=== PATIENT | female | born 1940 | race Caucasian/White ===

== ENCOUNTER 2017-07-02 09:40 | Inpatient (IN) | payer MEDICARE, OTHER ==
[2017-07-02] VITALS (7 sets, daily range): BP systolic 106–195; BP diastolic 61–86; PULSE 61–77; RESP 16–20; TEMP 98.2–98.7; O2SAT 93–98
[~2017-07-02] VITALS: Ht 162.6 cm; Wt 69.6 kg
[~2017-07-02 09:40] MED LIST: ACIP20TA19 PO; ACTO35TA PO; AMLO5TAB96 PO; ATOR20TA42 PO; CHLORTABS PO; DIOV40TA PO; GLUC500C56 PO; MONT10TA2 PO; MOTR200T PO; PROT40TA PO; PROZ20CA11 PO; TAB-TAB PO; VITA400C28 PO; otc PO
--- NOTE | 2017-07-02 10:21 | PD ---
HPI Chief Complaint: Dizziness Time Seen by Provider: 09:57 Travel History International Travel<30 days: No Contact w/Intl Traveler<30days: No Traveled to known affect area: No History of Present Illness HPI Patient presents to the emergency department after being at Dr. Rucker's office and referred to come to the ER for admission and further testing. Patient complains of a month long headache diffuse rates it at about 3-4 out of 10 and is occasionally associated with seeing black area, mostly on the periphery but it is not persistent or constant and resolves. Patient presently does not have any visual deficits. Patient denies any alleviating or aggravating factors. Patient denies any associated factors such as fever, cough , nausea, vomiting, diarrhea, back pain, abdominal pain, chest pain, rash at this time. Primary care is Dr. Anna MOONEY Neurologist is Dr. Rucker Allergies: Extensive list including aspirin codeine hydrocodone Reglan tramadol PFSH Past Medical History Asthma: Yes Cancer: Yes (skin cancers, lung ca left lung) Cardiovascular Problems: Yes COPD: Yes Diabetes: No GERD: Yes Glaucoma: No Hepatitis: No Hiatal Hernia: No Hypertension: Yes Medical other: Yes (reflux stress incontinence arthritis) Thyroid Disease: Yes Influenza Vaccination: Yes Dilation and Curettage (D&C): Yes Past Surgical History Abdominal Surgery: Yes (appendectomy gallbladder removed) Appendectomy: Yes Cholecystectomy: Yes Eye Surgery: Yes (cataract removal both eyes) Genitourinary Surgery: Yes (bladder sling) Gynecologic Surgery: Yes (d and c) Oral Surgery: Yes (tonsillectomy) Pacemaker: No Tonsillectomy: Yes Other Surgery: Yes (lower back surgery) Social History Alcohol Use: Yes (occasionally) Tobacco Use: No (QUIT LONG AGO) Substance Use: No Allergies-Medications (Allergen,Severity, Reaction): Coded Allergies: bupropion (Unverified Allergy, Severe, FLU-LIKE SXS, 01/12/17) nefazodone (Unverified Allergy, Severe, FLU-LIKE SXS, 01/12/17) hydrocodone (Verified Allergy, Unknown, 07/02/17) metoclopramide (Verified Allergy, Unknown, 07/02/17) nebivolol (Verified Allergy, Unknown, 07/02/17) tramadol (Verified Allergy, Unknown, 07/02/17) aspirin (Verified Adverse Reaction, Unknown, 07/02/17) codeine (Verified Adverse Reaction, Unknown, 07/02/17) dipyridamole (Verified Adverse Reaction, Unknown, 07/02/17) Reported Meds & Prescriptions Reported Meds & Active Scripts Active Reported Celecoxib 200 Mg Cap 200 Mg PO BID Breo Ellipta Inh (Fluticasone/Vilanterol) 100-25 Mcg/Act Inh 1 Puff INH EVERY OTHER DAY Use daily at the same time. Vitamin D3 (Cholecalciferol (Vitamin D3)) 2,000 Unit Tab.chew 2,000 Units PO DAILY Dyrenium (Triamterene) 50 Mg Cap 50 Mg PO DAILY Lipitor (Atorvastatin Calcium) 20 Mg Tab 20 Mg PO DAILY Singulair (Montelukast Sodium) 10 Mg Tab 10 Mg PO DAILY Protonix (Pantoprazole Sodium) 40 Mg Tab 40 Mg PO DAILY Glucosamine & Chondroitin Cap (Glucosa Saleh 2Kcl/Chondroitin Saleh) 500 Mg-400 Mg Capsule 1 Cap PO BID [Leg Cramps] 1 Tab PO DAILY Prozac (Fluoxetine HCl) 20 Mg Cap 20 Mg PO DAILY Preservision Areds (Multiple Vitamins W/ Minerals) 1 Tab 2 Tab PO DAILY Vitamin B-12 (Cyanocobalamin) 1,000 Mcg Tab 1,000 Mcg PO DAILY Multiple Vitamin/Minerals (Multiple Vitamins W/ Minerals) 1 Tab Tab 1 Tab PO DAILY Diovan (Valsartan) 160 Mg Tab 160 Mg PO BID Fioricet (Jivyomnjlf-Fotksdyjkyfxh-Zkqcjfme) 50-300-40 Mg Cap 1 Cap PO Q12HR PRN Review of Systems General / Constitutional: No: Fever Eyes: No: Visual changes HENT: Positive: Headaches Cardiovascular: No: Chest Pain or Discomfort Respiratory: No: Shortness of Breath Gastrointestinal: No: Abdominal Pain Genitourinary: No: Dysuria Musculoskeletal: No: Pain Skin: No Rash Neurologic: No: Weakness Psychiatric: No: Depression Endocrine: No: Polydipsia Hematologic/Lymphatic: No: Easy Bruising Physical Exam Narrative GENERAL: [Pleasant elderly female in no acute distress-] SKIN: Focused skin assessment warm/dry. HEAD: Atraumatic. Normocephalic. EYES: Pupils equal and round. No scleral icterus. No injection or drainage. ENT: No nasal bleeding or discharge. Mucous membranes pink and moist. NECK: Trachea midline. No JVD. CARDIOVASCULAR: Regular rate and rhythm. No murmur appreciated. RESPIRATORY: No accessory muscle use. Clear to auscultation. Breath sounds equal bilaterally. GASTROINTESTINAL: Abdomen soft, non-tender, nondistended. MUSCULOSKELETAL: No obvious deformities. No clubbing. No cyanosis. No edema. NEUROLOGICAL: Awake and alert. No obvious cranial nerve deficits. Motor grossly within normal limits. Normal speech. PSYCHIATRIC: Appropriate mood and affect; insight and judgment normal. Data Data Last Documented VS Vital Signs Date Time Temp Pulse Resp B/P (MAP) Pulse Ox O2 Delivery O2 Flow Rate FiO2 07/02/17 10:15 97 Room Air 07/02/17 09:43 98.7 64 18 Orders Orders Complete Blood Count With Diff (07/02/17 10:13) Comprehensive Metabolic Panel (07/02/17 10:13) Lipase (07/02/17 10:13) Iv Access Insert/Monitor (07/02/17 10:13) Ecg Monitoring (07/02/17 10:13) Oximetry (07/02/17 10:13) Consult Neurology (07/02/17 ) (Hub Use Only)Inp Phy Cons/Ref (07/02/17 ) Electrocardiogram (07/02/17 10:19) Admit Order (Ed Use Only) (07/02/17 12:56) Labs Laboratory Tests Test 07/02/17 10:15 White Blood Count 6.9 TH/MM3 Red Blood Count 4.15 MIL/MM3 Hemoglobin 12.5 GM/DL Hematocrit 37.4 % Mean Corpuscular Volume 90.2 FL Mean Corpuscular Hemoglobin 30.2 PG Mean Corpuscular Hemoglobin Concent 33.5 % Red Cell Distribution Width 13.0 % Platelet Count 341 TH/MM3 Mean Platelet Volume 6.6 FL Neutrophils (%) (Auto) 40.8 % Lymphocytes (%) (Auto) 32.7 % Monocytes (%) (Auto) 9.1 % Eosinophils (%) (Auto) 16.0 % Basophils (%) (Auto) 1.4 % Neutrophils # (Auto) 2.8 TH/MM3 Lymphocytes # (Auto) 2.3 TH/MM3 Monocytes # (Auto) 0.6 TH/MM3 Eosinophils # (Auto) 1.1 TH/MM3 Basophils # (Auto) 0.1 TH/MM3 CBC Comment DIFF FINAL Differential Comment Blood Urea Nitrogen 15 MG/DL Creatinine 0.77 MG/DL Random Glucose 89 MG/DL Total Protein 6.0 GM/DL Albumin 3.0 GM/DL Calcium Level 9.7 MG/DL Alkaline Phosphatase 113 U/L Aspartate Amino Transf (AST/SGOT) 25 U/L Alanine Aminotransferase (ALT/SGPT) 17 U/L Total Bilirubin 0.3 MG/DL Sodium Level 139 MEQ/L Potassium Level 4.0 MEQ/L Chloride Level 103 MEQ/L Carbon Dioxide Level 29.9 MEQ/L Anion Gap 6 MEQ/L Estimat Glomerular Filtration Rate 72 ML/MIN Lipase 249 U/L MDM Medical Decision Making Medical Screen Exam Complete: Yes Emergency Medical Condition: Yes Medical Record Reviewed: Yes Interpretation(s) EKG shows: Normal sinus rhythm, rate at 66, normal intervals, no STEMI pattern. Differential Diagnosis Not applicable since patient was sent in with imaging showing the causation of her headaches ELECTROLYTE ABNL V ANEMIA V DEHYDRATION Narrative Course NO EVIDENCE OF LEUKOCYTOSIS OR ANEMIA ON CBC....NORMAL ELECTROLYTES AND KIDNEY FUNCTION ON CMP. COAGULATION WNL. NO ADDITIONAL RADIOGRAPHS IN ED, DEFERRED PER NEUROSURGERY. PATIENT WILL BE ADMITTED FOR OBSERVATION Diagnosis Primary Impression: SELLAR MASS Admitting Information Admitting Physician Requests: Observation Owen Jolley MD Jul 02, 2017 10:21
[2017-07-02 10:38] LABS: AUTOMATED NEUTROPHIL # 2.8 TH/MM3 (1.8-7.7); BASOPHIL # 0.1 TH/MM3 (0-0.2); BASOPHIL % 1.4 % (0.0-2.0); EOSINOPHIL # 1.1 TH/MM3 (0-0.4); HEMATOCRIT 37.4 % (35.0-46.0); HEMOGLOBIN 12.5 GM/DL (11.6-15.3); LYMPH % 32.7 % (9.0-44.0); LYMPHOCYTE # 2.3 TH/MM3 (1.0-4.8); MEAN CELL VOLUME 90.2 FL (80.0-100.0); MEAN CORPUSCULAR HEMOGLOBIN 30.2 PG (27.0-34.0); MEAN CORPUSCULAR HGB CONC 33.5 % (32.0-36.0); MEAN PLATELET VOLUME 6.6 FL (7.0-11.0); MONO % 9.1 % (0.0-8.0); MONOCYTE # 0.6 TH/MM3 (0-0.9); NEUT % 40.8 % (16.0-70.0); PLATELET COUNT 341 TH/MM3 (150-450); RED BLOOD COUNT 4.15 MIL/MM3 (4.00-5.30); WHITE BLOOD COUNT 6.9 TH/MM3 (4.0-11.0)
[2017-07-02 11:15] LABS: AST (GOT) 25 U/L (15-37); BICARBONATE 29.9 MEQ/L (21.0-32.0); BLOOD UREA NITROGEN 15 MG/DL (7-18); CALCIUM 9.7 MG/DL (8.5-10.1); CHLORIDE 103 MEQ/L (98-107); CREATININE 0.77 MG/DL (0.50-1.00); GLOMERULAR FILTRATION RATE 72 ML/MIN (>89); GLUCOSE,RANDOM 89 MG/DL (74-106); SODIUM (NA) 139 MEQ/L (136-145)
[2017-07-02 11:21] LABS: ALKALINE PHOSPHATASE 113 U/L (45-117); ALT (GPT) 17 U/L (10-53); TOTAL BILIRUBIN ADULT 0.3 MG/DL (0.2-1.0)
[2017-07-02] MEDS ORDERED: VITA10002 PO (11:50)
[2017-07-02] MEDS ORDERED: PROZ20CA11 PO (11:50)
[2017-07-02] MEDS ORDERED: MONT10TA2 PO (11:50)
[2017-07-02] MEDS ORDERED: LEG CRAMPS PO (11:50)
[2017-07-02] MEDS ORDERED: DIOV160T6 PO (11:50)
[2017-07-02] MEDS ORDERED: MULT1TAB39 PO (11:50)
[2017-07-02] MEDS ORDERED: TRIA1CAP6 PO (11:50)
[2017-07-02] MEDS ORDERED: FLUT1INH INH (11:50)
[2017-07-02] MEDS ORDERED: PROT40TA PO (11:50)
[2017-07-02] MEDS ORDERED: LIPI20TA PO (11:50)
[2017-07-02] MEDS ORDERED: GLUC500C36 PO (11:50)
[2017-07-02] MEDS ORDERED: BUTA1CAP PO (11:50)
[2017-07-02] MEDS ORDERED: CHOL1CHW5 PO (11:50)
[2017-07-02] MEDS ORDERED: OCUVTAB4 PO (11:50)
[2017-07-02] MEDS ORDERED: CELE1CAP8 PO (11:57)
[2017-07-02] MEDS ORDERED: ONDANSETRON HCL 4 MG/2 ML VIAL IVP PRN (13:00)
[2017-07-02] MEDS ORDERED: SODIUM CHLORIDE 0.9% FLUSH 10 ML FLUSH IV FLUSH PRN (13:00)
[2017-07-02] MEDS ORDERED: NALOXONE HCL 0.4 MG/ML AMP IV PUSH PRN (13:00)
[2017-07-02] MEDS ORDERED: ACETAMINOPHEN 325 MG TAB PO PRN ×2 (13:00)
[2017-07-02] MEDS ORDERED: GADODIAMIDE PF 287 MG/ML 20 ML VIAL (for RAD MRI) IVCONTRAST ONE (13:01)
[2017-07-02] MEDS ORDERED: GADODIAMIDE PF 287 MG/ML 5 ML VIAL (for RAD MRI) IVCONTRAST ONE (13:01)
--- NOTE | 2017-07-02 14:01 | PD.CONS ---
HPI Service neurosurgery Consult Requested By Dr Armendariz Reason for Consult pituitary adenoma Primary Care Physician Anna Galo, History of Present Illness This is a 77 year-old female with a history of arterial hypertension, hyperlipidemia was sent to the ED by her neurologist Dr. Weinstein for evaluation of one month history of headaches. She reports that her headaches started in December, following lumbar surgery at the [facility]. She continues to suffer from severe, intractable low back pain. She reports only 2 o 3 days of relief following her surgery. In addition, she has a recent finding of sellar Mass on her brain MRI. She reports throbbing type of headaches rated 9/10 in intensity without any photophobia, visual field defect, congestions, rarely associated with nausea without any emesis. She also reports vision no any black spots from a right eye and she also complained of unsteady gait over the past month for which now she is using a walker to ambulate. She also reports memory loss. Denies visual loss. She has a history of prior removal of cataract. She endorses decreased appetite and she has no GI bleed. She denies any any focal weakness, sensory loss, incontinence of stool or urine. She was evaluated by a neurologist. Neurosurgical consultation was requested Review of Systems Constitutional: DENIES: Diaphoretic episodes, Fatigue, Fever, Weight gain, Weight loss, Chills, Dizziness, Change in appetite, Night Sweats Endocrine: DENIES: Abnorml menstrual pattern, Heat/cold intolerance, Polydipsia , Polyuria, Polyphagia Eyes: DENIES: Blurred vision, Diplopia, Eye inflammation, Eye pain, Vision loss , Photosensitivity, Double Vision Ears, nose, mouth, throat: DENIES: Tinnitus, Hearing loss, Vertigo, Nasal discharge, Oral lesions, Throat pain, Hoarseness, Ear Pain, Running Nose, Epistaxis, Sinus Pain, Toothache, Odynophagia Respiratory: DENIES: Apneas, Cough, Snoring, Wheezing, Hemoptysis, Sputum production, Shortness of breath Cardiovascular: DENIES: Chest pain, Palpitations, Syncope, Dyspnea on Exertion , PND, Lower Extremity Edema, Orthopnea, Claudication Genitourinary: DENIES: Abnormal vaginal bleeding, Dysmenorrhea, Dyspareunia, Sexual dysfunction, Urinary frequency, Urinary incontinence, Urgency, Hematuria , Dysuria, Nocturia, Vaginal discharge Musculoskeletal: COMPLAINS OF: Back pain, DENIES: Joint pain, Muscle aches, Stiffness, Joint Swelling, Neck pain Integumentary: DENIES: Abnormal pigmentation, Pruritus, Rash, Nail changes, Breast masses, Breast skin changes, Nipple discharge Hematologic/lymphatic: DENIES: Bruising, Lymphadenopathy Immunologic/allergic: DENIES: Eczema, Urticaria Neurologic: COMPLAINS OF: Headache, DENIES: Abnormal gait, Localized weakness, Paresthesias, Seizures, Speech Problems, Tremor, Poor Balance Psychiatric: COMPLAINS OF: Confusion, DENIES: Anxiety, Mood changes, Depression , Hallucinations, Agitation, Suicidal Ideation, Homicidal Ideation, Delusions Past Family Social History Allergies: Coded Allergies: bupropion (Unverified Allergy, Severe, FLU-LIKE SXS, 01/12/17) nefazodone (Unverified Allergy, Severe, FLU-LIKE SXS, 01/12/17) hydrocodone (Verified Allergy, Unknown, 07/02/17) metoclopramide (Verified Allergy, Unknown, 07/02/17) nebivolol (Verified Allergy, Unknown, 07/02/17) tramadol (Verified Allergy, Unknown, 07/02/17) aspirin (Verified Adverse Reaction, Unknown, 07/02/17) codeine (Verified Adverse Reaction, Unknown, 07/02/17) dipyridamole (Verified Adverse Reaction, Unknown, 07/02/17) Past Medical History Asthma: Yes Cancer: Yes (skin cancers, lung ca left lung) Cardiovascular Problems: Yes COPD: Yes GERD: Yes Hypertension: Yes Medical other: Yes (reflux stress incontinence arthritis) Thyroid Disease: Yes Past Surgical History Abdominal Surgery: Yes (appendectomy gallbladder removed) Appendectomy: Yes Cholecystectomy: Yes Eye Surgery: Yes (cataract removal both eyes) Genitourinary Surgery: Yes (bladder sling) Oral Surgery: Yes (tonsillectomy) Tonsillectomy: Yes LUMBAR LAMINECTOMY AT THE laser INSTIRUTE Reported Medications Multivitamin (Multivitamins) 1 Tab Tab 1 Tab PO DAILY Ibuprofen 200 Mg Tab 200 Mg PO PRN [otc chlortabs] PO PRN Vitamin D 400 Unit Tab 0 PO WEEKLY pt takes 50,000 units weekly Glucosamine Sulfate/Chondroitin Sulfate (Glucosamine/Chondroitin) Tab 1 Tab PO BID Actonel (Risedronate) 35 Mg Tab 35 Mg PO WEEKLY Aciphex (Rabeprazole Sodium) 20 Mg Tabdr 20 Mg PO HS Singulair (Montelukast Sodium) 10 Mg Tab 10 Mg PO HS Lipitor (Atorvastatin Calcium) 20 Mg Tab 10 Mg PO DAILY Diovan (Valsartan) 40 Mg Tab 160 Mg PO DAILY Norvasc (Amlodipine Besylate) 5 Mg Tab 5 Mg PO DAILY Protonix (Pantoprazole Sodium) 40 Mg Tabdr 40 Mg PO DAILY Prozac (Fluoxetine HCl) 20 Mg Cap 20 Mg PO TID Allergies: Coded Allergies: bupropion (Unverified Allergy, Severe, FLU-LIKE SXS, 01/12/17) nefazodone (Unverified Allergy, Severe, FLU-LIKE SXS, 01/12/17) hydrocodone (Verified Allergy, Unknown, 07/02/17) metoclopramide (Verified Allergy, Unknown, 07/02/17) nebivolol (Verified Allergy, Unknown, 07/02/17) tramadol (Verified Allergy, Unknown, 07/02/17) aspirin (Verified Adverse Reaction, Unknown, 07/02/17) codeine (Verified Adverse Reaction, Unknown, 07/02/17) dipyridamole (Verified Adverse Reaction, Unknown, 07/02/17) Active Ordered Medications Current Medications Sodium Chloride (NS Flush) 2 ml UNSCH PRN IV FLUSH FLUSH AFTER USING IV ACCESS ; Start 07/02/17 at 13:00 Sodium Chloride (NS Flush) 2 ml BID IV FLUSH Last administered on 07/03/17at 10: 04; Start 07/02/17 at 21:00 Acetaminophen (Tylenol) 650 mg Q4H PRN PO TEMP > 100.4; Start 07/02/17 at 13:00 Ondansetron HCl (Zofran Inj) 4 mg Q6H PRN IVP NAUSEA OR VOMITING; Start at 13:00 Acetaminophen (Tylenol) 650 mg Q6H PRN PO PAIN SCALE 1 TO 2; Start 07/02/17 at 13:00 Naloxone HCl (Narcan Inj) 0.4 mg UNSCH PRN IV PUSH SEE LABEL COMMENTS; Start at 13:00 Atorvastatin Calcium (Lipitor) 20 mg DAILY PO Last administered on 07/03/17at 10: 06; Start 07/03/17 at 09:00 Celecoxib (CeleBREX) 200 mg BID PO Last administered on 07/03/17at 10:06; Start 07/02/17 at 21:00 Fluoxetine HCl (PROzac) 20 mg DAILY PO Last administered on 07/03/17at 10:06; Start 07/03/17 at 09:00 Fluticasone/ Vilanterol (Breo Ellipta 100-25 Inh) 1 puff EVERY OTHER DAY INH ; Start 07/04/17 at 09:00 Montelukast Sodium (Singulair) 10 mg DAILY PO ; Start 07/03/17 at 09:00 Pantoprazole Sodium (Protonix) 40 mg DAILY PO Last administered on 07/03/17at 10: 06; Start 07/03/17 at 09:00 Valsartan (Diovan) 160 mg BID PO Last administered on 07/03/17at 10:06; Start 07/02/17 at 21:00 Acetaminophen/ Butalbital/ Caffeine (Fioricet 325-50-40) 1 tab Q12HR PRN PO HEADACHE Last administered on 07/03/17at 05:27; Start 07/02/17 at 16:00; Stop at 10:44; Status DC Patient Own Medication PT OWN MED: DYRENIUM (TRIAMTERE... DAILY PO ; Start at 09:00; Status Future Hold Gadodiamide (Omniscan Pf Inj) 13 ml STK-MED ONCE IVCONTRAST Last administered on 07/02/17at 13:01; Start 07/02/17 at 13:01; Stop 07/02/17 at 20:11; Status DC Ketorolac Tromethamine (Toradol Inj) 30 mg ONCE ONCE IV PUSH Last administered on 07/02/17at 22:54; Start 07/02/17 at 22:15; Stop 07/02/17 at 22:16; Status DC Temazepam (Restoril) 7.5 mg ONCE ONCE PO ; Start 07/02/17 at 23:00; Stop at 23:04; Status DC Clonidine (Catapres) 0.1 mg ONCE ONCE PO Last administered on 07/03/17at 04:05; Start 07/03/17 at 04:00; Stop 07/03/17 at 04:02; Status DC Gadodiamide (Omniscan Pf Inj) 13 ml STK-MED ONCE IVCONTRAST Last administered on 07/02/17at 13:01; Start 07/02/17 at 13:01; Stop 07/03/17 at 08:47; Status DC Ketorolac Tromethamine (Toradol Inj) 30 mg ONCE ONCE IM Last administered on at 10:06; Start 07/03/17 at 09:00; Stop 07/03/17 at 09:01; Status DC Acetaminophen/ Butalbital/ Caffeine (Fioricet 325-50-40) 1 tab Q6HR PRN PO HEADACHE; Start 07/03/17 at 11:00 Current Medications Sodium Chloride (NS Flush) 2 ml UNSCH PRN IV FLUSH FLUSH AFTER USING IV ACCESS ; Start 07/02/17 at 13:00 Sodium Chloride (NS Flush) 2 ml BID IV FLUSH ; Start 07/02/17 at 21:00 Acetaminophen (Tylenol) 650 mg Q4H PRN PO TEMP > 100.4; Start 07/02/17 at 13:00 Ondansetron HCl (Zofran Inj) 4 mg Q6H PRN IVP NAUSEA OR VOMITING; Start at 13:00 Acetaminophen (Tylenol) 650 mg Q6H PRN PO PAIN SCALE 1 TO 2; Start 07/02/17 at 13:00 Naloxone HCl (Narcan Inj) 0.4 mg UNSCH PRN IV PUSH SEE LABEL COMMENTS; Start at 13:00 Family History Family History Due to patient's advanced age, otherwise her family history was reviewed and was not relevant for this case Social History Alcohol Use: Yes (occasionally) Tobacco Use: No (QUIT LONG AGO) Substance Use: No Physical Exam Vital Signs Vital Signs Date Time Temp Pulse Resp B/P (MAP) Pulse Ox O2 Delivery O2 Flow Rate FiO2 07/02/17 10:15 97 Room Air 07/02/17 09:43 98.7 64 18 184/79 (114) 95 Room Air Physical Exam MS Gomez is alert, awake and oriented to time, place and person. Speech is fluent. Cranial nerve examination demonstrates the pupils to be equal, round, and reactive to light. Extra-ocular movements are intact. Facial motor and sensory function are normal and symmetrical. Gross hearing is intact, bilaterally. The uvula is midline and elevates symmetrically with the soft palate. Sternocleidomastoid and trapezius muscles have normal and symmetrical strength. Other cranial nerves are intact. Neck is soft and supple. Cervical spine has a full range of motion in anterior flexion, extension, lateral bending, and rotation without pain. There is no tenderness to palpation to the spinous processes or paraspinal muscles. Muscle testing reveals normal bulk and tone overall without rigidity, spasticity , fasciculations, or atrophy. Muscle strength is 5/5 in all muscle groups of both upper extremities including deltoid, biceps, triceps, brachioradialis, wrist extension and perinatology physician. In the lower extremities, strength is 5/5 in both iliopsoas, quadriceps, hamstrings, plantar flexion, dorsiflexion, and extensor hallicus longus. Sensory examination is intact to light touch and sharp/dull discrimination in both the upper and lower extremities, symmetrically. Deep tendon reflexes are 2+ and symmetrical in the biceps, triceps, and brachioradialis, bilaterally, in the upper extremities. In the lower extremities , the patellar and Achilles are 2+, bilaterally. There is a bilateral plantar flexion response. Hoffmanns sign is negative. There is no clonus or other abnormal reflexes noted. Cerebellar examination is intact to [id number] test, rapid rhythmic alternating motion. There is no dysmetria, dysdiadochokinesia, truncal ataxia, or tremor. Lungs: clear, nonlabored breathing, no wheezing Heart: S1, S2, regular rhythm and rate Skin: warm and dry, no cyanosis. Laboratory Laboratory Tests Test 07/02/17 10:15 White Blood Count 6.9 Red Blood Count 4.15 Hemoglobin 12.5 Hematocrit 37.4 Mean Corpuscular Volume 90.2 Mean Corpuscular Hemoglobin 30.2 Mean Corpuscular Hemoglobin Concent 33.5 Red Cell Distribution Width 13.0 Platelet Count 341 Mean Platelet Volume 6.6 Neutrophils (%) (Auto) 40.8 Lymphocytes (%) (Auto) 32.7 Monocytes (%) (Auto) 9.1 Eosinophils (%) (Auto) 16.0 Basophils (%) (Auto) 1.4 Neutrophils # (Auto) 2.8 Lymphocytes # (Auto) 2.3 Monocytes # (Auto) 0.6 Eosinophils # (Auto) 1.1 Basophils # (Auto) 0.1 CBC Comment DIFF FINAL Differential Comment Blood Urea Nitrogen 15 Creatinine 0.77 Random Glucose 89 Total Protein 6.0 Albumin 3.0 Calcium Level 9.7 Alkaline Phosphatase 113 Aspartate Amino Transf (AST/SGOT) 25 Alanine Aminotransferase (ALT/SGPT) 17 Total Bilirubin 0.3 Sodium Level 139 Potassium Level 4.0 Chloride Level 103 Carbon Dioxide Level 29.9 Anion Gap 6 Estimat Glomerular Filtration Rate 72 Lipase 249 Result Diagram: 07/02/17 1015 07/02/17 1015 Attending Statement Neuro. Recommend neuro checks. I review her outside MRI of the brain which show 1 cm pituitary adenoma. I do not see any evidence of apoplexy. I recommend that she undergoes an MRI of the pituitary region with and without contrast Recommend. CONSULT smoking pipes cleaner. Recommend full putuitary workup Consult ophtalmology for visual field assessment and assessment of her prior surgical condition In regards to her chronic low back pain, she tells me that since she suspects a cerebrospinal fluid leak on her lumbar region. I will defer further care to the surgeon who recently performed her lumbar surgery, at the [facility]. These could be done as an outpatient Pulmonary.. Continue aggressive pulmonary toilette, nasotracheal suction, and breathing treatments with nebulizers. Nutrition. NPO Renal. monitor closely urine output, BUN and creatinine Endocrine. Monitor serial Acu checks and SSI as needed in detail ID monitor for signs of infection Protonix for stress ulcer prophylaxis Pranay flores and SCD's for DVT prophylaxis. Santhosh Gaviria MD Jul 02, 2017 14:01
--- NOTE | 2017-07-02 14:04 | PD.CONS ---
History of Present Illness Service Neurology Consult Requested By ED Reason for Consult headache Primary Care Physician Anna Galo DO History of Present Illness 77 yo female known to our practice, seen in office yesterday and having persistent headache and scotoma in the right eye particularly. She had MRI brain as an outpatient concerning for a pituitary mass. She states the scotoma is not active today. The patient also notes pain down her spine. She denies any incontinence of urine or stool. (Hardeep Jaeger) Review of Systems Constitutional: Negative except HPI Eye: Negative Except HPI ENMT: Negative except HPI Respiratory: Negative except HPI Cardiovascular: Negative except HPI Gastrointestinal: Negative except HPI Gabino/Lymph: Negative except HPI Musculoskeletal: Negative except HPI Neurologic: Negative except HPI Psychiatric: Negative except HPI All other ROS: ROS reviewed as documented in chart (Hardeep Jaeger) Past Family Social History Allergies: Coded Allergies: bupropion (Unverified Allergy, Severe, FLU-LIKE SXS, 01/12/17) nefazodone (Unverified Allergy, Severe, FLU-LIKE SXS, 01/12/17) hydrocodone (Verified Allergy, Unknown, 07/02/17) metoclopramide (Verified Allergy, Unknown, 07/02/17) nebivolol (Verified Allergy, Unknown, 07/02/17) tramadol (Verified Allergy, Unknown, 07/02/17) aspirin (Verified Adverse Reaction, Unknown, 07/02/17) codeine (Verified Adverse Reaction, Unknown, 07/02/17) dipyridamole (Verified Adverse Reaction, Unknown, 07/02/17) Active Ordered Medications Current Medications Medications (Trade) Dose Ordered Sig/Ruben Route Start Time Stop Time Status Last Admin (NS Flush) 2 ml UNSCH PRN IV FLUSH 07/02/17 13:00 (NS Flush) 2 ml BID IV FLUSH 07/02/17 21:00 (Tylenol) 650 mg Q4H PRN PO 07/02/17 13:00 (Zofran Inj) 4 mg Q6H PRN IVP 07/02/17 13:00 (Tylenol) 650 mg Q6H PRN PO 07/02/17 13:00 (Narcan Inj) 0.4 mg UNSCH PRN IV PUSH 07/02/17 13:00 (Hardeep Jaeger) Exam I&O / VS Vital Signs Date Time Temp Pulse Resp B/P (MAP) Pulse Ox O2 Delivery O2 Flow Rate FiO2 07/02/17 10:15 97 Room Air 07/02/17 09:43 98.7 64 18 184/79 (114) 95 Room Air General: No acute distress Eye: PERRL, EOMI Respiratory: Non-labored respirations, Symmetrical expansion Cardiology: Normal rate Neurologic: Alert, CN II-XII intact, Normal DTR's Psychiatric: Cooperative Exam Comments ox2, not to year, speech fluent, pleasant affect but c/o persistent headache, walking with a walker-no gross ataxia, subjective slight decrease in B/L peripheral vision, no ptosis or nystagmus, no facial weakness, no focal weakness , no drift, mild hyperesthesia noted in both uppers, sensory intact in lowers, heel-arellano coordination intact, FNF intact, plantar flexor (Hardeep Jaeger) Review/Management Diagnosis/Plan: (1) Headache ICD Codes: R51 - Headache Status: Acute Plan: Fioricet, zofran Supportive care (2) Mass, brain ICD Codes: G93.9 - Disorder of brain, unspecified Plan: NSx consult pending Check PRL MRI pituitary (Hardeep Jaeger) Diagnosis/Plan: (1) Pituitary adenoma ICD Codes: D35.2 - Benign neoplasm of pituitary gland Status: Chronic Plan: d/w PA. agree with above f/u mri's appreciate nsx (2) Cognitive impairment ICD Codes: R41.89 - Other symptoms and signs involving cognitive functions and awareness Status: Chronic (Caden Rucker MD) Hardeep Jaeger Jul 02, 2017 14:04 Caden Rucker MD Jul 02, 2017 21:52
--- NOTE | 2017-07-02 14:15 | HHI.HP ---
HPI Service [facility] Primary Care Physician Anna Galo DO Admission Diagnosis HEADACHE DUE TO SELLAR MASS Diagnoses: (1) Mass, brain (2) Headache Chief Complaint: Headache Travel History International Travel<30 Days: No Contact w/Intl Traveler <30 Da: No Traveled to Known Affected Are: No History of Present Illness 77 year-old female with a history of hypertension, hyperlipidemia was sent to the ED by her neurologist Dr. Weinstein for evaluation of one month history of headache and recent finding of sellar Mass on brain MRI. Patient reports throbbing type of headaches rated 9/10 in intensity without any photophobia, visual field defect, congestions however it is occasionally associated with nausea without any emesis. She also reports vision no any black spots from a right eye and she also complained of unsteady gait over the past month for which now she is using a walker to ambulate. She also endorsed memory loss. Patient has a history of prior removal of cataract. She endorses decreased appetite and she has no GI bleed Review of Systems Except as stated in HPI: all other systems reviewed are Neg Past Family Social History Past Medical History Asthma: Yes Cancer: Yes (skin cancers, lung ca left lung) Cardiovascular Problems: Yes COPD: Yes GERD: Yes Hypertension: Yes Medical other: Yes (reflux stress incontinence arthritis) Thyroid Disease: Yes Past Surgical History Abdominal Surgery: Yes (appendectomy gallbladder removed) Appendectomy: Yes Cholecystectomy: Yes Eye Surgery: Yes (cataract removal both eyes) Genitourinary Surgery: Yes (bladder sling) Oral Surgery: Yes (tonsillectomy) Tonsillectomy: Yes Other Surgery: Yes (lower back surgery) Reported Medications Multivitamin (Multivitamins) 1 Tab Tab 1 Tab PO DAILY Ibuprofen 200 Mg Tab 200 Mg PO PRN [otc chlortabs] PO PRN Vitamin D 400 Unit Tab 0 PO WEEKLY pt takes 50,000 units weekly Glucosamine Sulfate/Chondroitin Sulfate (Glucosamine/Chondroitin) Tab 1 Tab PO BID Actonel (Risedronate) 35 Mg Tab 35 Mg PO WEEKLY Aciphex (Rabeprazole Sodium) 20 Mg Tabdr 20 Mg PO HS Singulair (Montelukast Sodium) 10 Mg Tab 10 Mg PO HS Lipitor (Atorvastatin Calcium) 20 Mg Tab 10 Mg PO DAILY Diovan (Valsartan) 40 Mg Tab 160 Mg PO DAILY Norvasc (Amlodipine Besylate) 5 Mg Tab 5 Mg PO DAILY Protonix (Pantoprazole Sodium) 40 Mg Tabdr 40 Mg PO DAILY Prozac (Fluoxetine HCl) 20 Mg Cap 20 Mg PO TID Allergies: Coded Allergies: bupropion (Unverified Allergy, Severe, FLU-LIKE SXS, 01/12/17) nefazodone (Unverified Allergy, Severe, FLU-LIKE SXS, 01/12/17) hydrocodone (Verified Allergy, Unknown, 07/02/17) metoclopramide (Verified Allergy, Unknown, 07/02/17) nebivolol (Verified Allergy, Unknown, 07/02/17) tramadol (Verified Allergy, Unknown, 07/02/17) aspirin (Verified Adverse Reaction, Unknown, 07/02/17) codeine (Verified Adverse Reaction, Unknown, 07/02/17) dipyridamole (Verified Adverse Reaction, Unknown, 07/02/17) Family History Due to patient's advanced age, family history not relevant for this case Social History Alcohol Use: Yes (occasionally) Tobacco Use: No (QUIT LONG AGO) Substance Use: No Physical Exam Vital Signs Vital Signs Date Time Temp Pulse Resp B/P (MAP) Pulse Ox O2 Delivery O2 Flow Rate FiO2 07/02/17 10:15 97 Room Air 07/02/17 09:43 98.7 64 18 184/79 (114) 95 Room Air Physical Exam GENERAL: This is a well-nourished, well-developed patient, in no apparent distress. SKIN: No rashes, ecchymoses or lesions. Cool and dry. HEAD: Atraumatic. Normocephalic. No temporal or scalp tenderness. EYES: Pupils equal round and reactive. Extraocular motions intact. No scleral icterus. No injection or drainage. ENT: Nose without bleeding, purulent drainage or septal hematoma. Throat without erythema, tonsillar hypertrophy or exudate. Uvula midline. Airway patent. NECK: Trachea midline. No JVD or lymphadenopathy. Supple, nontender, no meningeal signs. CARDIOVASCULAR: Regular rate and rhythm without murmurs, gallops, or rubs. RESPIRATORY: Clear to auscultation. Breath sounds equal bilaterally. No wheezes , rales, or rhonchi. GASTROINTESTINAL: Abdomen soft, non-tender, nondistended. No hepato-splenomegaly , or palpable masses. No guarding. MUSCULOSKELETAL: Extremities without clubbing, cyanosis, or edema. No joint tenderness, effusion, or edema noted. No calf tenderness. Negative Homans sign bilaterally. NEUROLOGICAL: Awake and alert. Cranial nerves II through XII intact. Motor and sensory grossly within normal limits. Five out of 5 muscle strength in all muscle groups. Normal speech. Laboratory Laboratory Tests Test 07/02/17 10:15 White Blood Count 6.9 Red Blood Count 4.15 Hemoglobin 12.5 Hematocrit 37.4 Mean Corpuscular Volume 90.2 Mean Corpuscular Hemoglobin 30.2 Mean Corpuscular Hemoglobin Concent 33.5 Red Cell Distribution Width 13.0 Platelet Count 341 Mean Platelet Volume 6.6 Neutrophils (%) (Auto) 40.8 Lymphocytes (%) (Auto) 32.7 Monocytes (%) (Auto) 9.1 Eosinophils (%) (Auto) 16.0 Basophils (%) (Auto) 1.4 Neutrophils # (Auto) 2.8 Lymphocytes # (Auto) 2.3 Monocytes # (Auto) 0.6 Eosinophils # (Auto) 1.1 Basophils # (Auto) 0.1 CBC Comment DIFF FINAL Differential Comment Blood Urea Nitrogen 15 Creatinine 0.77 Random Glucose 89 Total Protein 6.0 Albumin 3.0 Calcium Level 9.7 Alkaline Phosphatase 113 Aspartate Amino Transf (AST/SGOT) 25 Alanine Aminotransferase (ALT/SGPT) 17 Total Bilirubin 0.3 Sodium Level 139 Potassium Level 4.0 Chloride Level 103 Carbon Dioxide Level 29.9 Anion Gap 6 Estimat Glomerular Filtration Rate 72 Lipase 249 Result Diagram: 07/02/17 1015 07/02/17 1015 Septic Shock Reassessment Septic shock perfusion: reassessment completed Caprini VTE Risk Assessment Caprini VTE Risk Assessment: Mod/High Risk (score >= 2) Caprini Risk Assessment Model Point Value = 1 Point Value = 2 Point Value = 3 Point Value = 5 Age 41-60 Minor surgery BMI > 25 kg/m2 Swollen legs Varicose veins or History of unexplained or recurrent spontaneous Oral contraceptives or hormone replacement Sepsis (< 1 month) Serious lung disease, including pneumonia (< 1 month) Abnormal pulmonary function Acute myocardial infarction Congestive heart failure (< 1 month) History of inflammatory bowel disease Medical patient at bed rest Age 61-74 Arthroscopic surgery Major open surgery (> 45 min) Laparoscopic surgery (> 45 min) Malignancy Confined to bed (> 72 hours) Immobilizing plaster cast Central venous access Age >= 75 History of VTE Family history of VTE Factor V Leiden Prothrombin [id number] Lupus anticoagulant Anticardiolipin antibodies Elevated serum homocysteine Heparin-induced thrombocytopenia Other congenital or acquired thrombophilia Stroke (< 1 month) Elective arthroplasty Hip, pelvis, or leg fracture Acute spinal cord injury (< 1 month) Prophylaxis Regimen Total Risk Factor Score Risk Level Prophylaxis Regimen 0-1 Low Early ambulation 2 Moderate Order ONE of the following: *Sequential Compression Device (SCD) *Heparin 5000 units SQ BID 3-4 Higher Order ONE of the following medications: *Heparin 5000 units SQ TID *Enoxaparin/Lovenox 40 mg SQ daily (WT < 150 kg, CrCl > 30 mL/min) *Enoxaparin/Lovenox 30 mg SQ daily (WT < 150 kg, CrCl > 10-29 mL/min) *Enoxaparin/Lovenox 30 mg SQ BID (WT < 150 kg, CrCl > 30 mL/min) AND/OR *Sequential Compression Device (SCD) 5 or more Highest Order ONE of the following medications: *Heparin 5000 units SQ TID (Preferred with Epidurals) *Enoxaparin/Lovenox 40 mg SQ daily (WT < 150 kg, CrCl > 30 mL/min) *Enoxaparin/Lovenox 30 mg SQ daily (WT < 150 kg, CrCl > 10-29 mL/min) *Enoxaparin/Lovenox 30 mg SQ BID (WT < 150 kg, CrCl > 30 mL/min) AND *Sequential Compression Device (SCD) Assessment and Plan Problem List: (1) Headache ICD Code: R51 - Headache Status: Acute (2) Mass, brain ICD Code: G93.9 - Disorder of brain, unspecified Assessment and Plan 77-year-old female with Sellar mass Headache Outside brain MRI noted and review with finding of sellar mass Will consult neurology, neurosurgery Repeat MRI of pituitary, check Brain MRA Check prolactin, 24 hour urine free cortisol, IGF-1 to Rule out functioning pituitary adenoma Check TSH and Free T4 PT consult to treat and eval Other chronic medical conditions including hypertension, hyperlipidemia, anxiety Resume outpatient medications DVT prophylaxis: Bilateral SCDs Code Status Full code Discussed Condition With Patient, son, ED physician Rick Buck MD Jul 02, 2017 14:15
[2017-07-02] MEDS: ACETAMIN 325 MG/BUTALBITAL 50 MG/CAFFEINE 40 MG TAB PO PRN (16:34)
--- NOTE | 2017-07-02 19:41 | EKG ---
Date Performed: 07/02/2017 Time Performed: 10:19:51 PTAGE: 77 years EKG: Sinus rhythm WITH OCCASIONAL SUPRAVENTRICULAR PREMATURE COMPLEXES BORDERLINE ECG Since the prior tracing, there h as been no significant change PREVIOUS TRACING : 12/11/2010 06.58 DOCTOR: Buck Gonsales Interpretating Date/Time 07/02/2017 19:40:49
--- NOTE | 2017-07-02 21:15 | RADRPT ---
EXAM DATE/TIME: 07/02/2017 19:37 [facility] COMPARISON: No previous studies available for comparison. INDICATIONS : Leptomeningeal disease. CONTRAST: 13 cc Omniscan (gadodiamide) IV MEDICAL HISTORY : Carcinoma, lung. Hypertension. Chronic obstructive pulmonary disease. SURGICAL HISTORY : Appendectomy. Fusion, lumbar. Cholecystectomy. ENCOUNTER: Initial ACUITY: 1 day PAIN SCORE: 0/10 LOCATION: cranial TECHNIQUE: Multiplanar, multisequence MRI of the brain was performed both prior to and following the administrat ion of paramagnetic contrast. FINDINGS: CEREBRUM: There appears to be a 1.3 x 1.0 cm right-sided pituitary nodule consistent with probable adenoma. The ventricles are normal for age. No evidence of midline shift, mass lesion, hemorrhage or acute infar ction. No extraaxial fluid collections are seen. WHITE MATTER: Mild periventricular and subcortical white matter small vessel ischemic changes are noted bilaterally . POSTERIOR FOSSA: The cerebellum is intact. Mild bilateral pontine ischemic changes are noted. The 4th ventricle is mid line. The cerebellopontine angle is unremarkable. The cerebellar tonsils are normal in position. DIFFUSION IMAGING: No focal areas of restricted diffusion are seen. No evidence of acute infarction. EXTRACRANIAL: The visualized portions of the orbits and paranasal sinuses are unremarkable. POST-CONTRAST: No abnormal areas of parenchymal or dural enhancement. No evidence of blood-brain barrier breakdown. CONCLUSION: 1. 1.3 x 1.0 cm right-sided pituitary nodule consistent with probable adenoma. 2. Mild periventricular and subcortical white matter small vessel ischemic changes bilaterally. 3. Mild bilateral pontine ischemic changes. 4. No acute hemorrhage, acute infarct, midline shift or extra-axial fluid collections. Jose Luis Maza MD on July 02, 2017 at 21:06 Board Certified Radiologist. This report was verified electronically.
--- NOTE | 2017-07-02 21:19 | RADRPT ---
EXAM DATE/TIME: 07/02/2017 19:37 [facility] COMPARISON: No previous studies available for comparison. INDICATIONS : Cerebrovascular Disease MEDICAL HISTORY : Carcinoma, lung. Hypertension. Chronic obstructive pulmonary disease. CAD. SURGICAL HISTORY : Fusion, lumbar. Tonsillectomy. Appendectomy. Cholecystectomy. ENCOUNTER: Initial ACUITY: 1 day PAIN SCORE: 0/10 LOCATION: cranial Please note a normal MRA of the brain does not entirely exclude the possibility of a small aneurysm, nor the possibility of distal intracranial vessel disease. TECHNIQUE: 3D time of flight MRA was performed. Source images, multiplanar STS MIP, and 3D volume MIP reconstru ctions were reviewed. FINDINGS: There is excellent visualization of the major intracranial arteries out to the second-order branch ve ssels. There is no evidence for aneurysm, vessel truncation and no evidence for vascular malformatio n. Mild focal segmental stenosis is noted within the right middle cerebral artery proximal to the bif urcation. CONCLUSION: Mild focal segmental stenosis involving the right middle cerebral artery proximal to the bifurcation. Otherwise unremarkable MRA of the brain. Jose Luis Maza MD on July 02, 2017 at 21:13 Board Certified Radiologist. This report was verified electronically.
--- NOTE | 2017-07-02 21:20 | RADRPT ---
EXAM DATE/TIME: 07/02/2017 19:37 [facility] COMPARISON: MRI BRAIN W & W/O CONTRAST, July 02, 2017, 19:37. INDICATIONS : Cerebrovascular Disease. MEDICAL HISTORY : Carcinoma, lung. Hypertension. Chronic obstructive pulmonary disease. SURGICAL HISTORY : Fusion, lumbar. Cholecystectomy. Tonsillectomy. ENCOUNTER: Initial ACUITY: 1 day PAIN SCORE: 0/10 LOCATION: cranial Please note a normal MRA of the brain does not entirely exclude the possibility of a small aneurysm, nor the possibility of distal intracranial vessel disease. TECHNIQUE: MR venography of the brain was performed without contrast with multiplanar and 3D reconstructions. FINDINGS: There is no evidence of cerebral sinus thrombosis. CONCLUSION: No evidence of cerebral sinus thrombosis. Jose Luis Maza MD on July 02, 2017 at 21:16 Board Certified Radiologist. This report was verified electronically.
[2017-07-02] MEDS: VALSARTAN 160 MG TAB PO SCH (21:45)
[2017-07-02] MEDS: CELECOXIB 200 MG CAP PO SCH (21:45)
[2017-07-02] MEDS: SODIUM CHLORIDE 0.9% FLUSH 10 ML FLUSH IV FLUSH SCH (21:46)
[2017-07-02] MEDS ORDERED: KETOROLAC TROMETHAMINE 30 MG/ML (IVP) VIAL IV PUSH ONE (22:15)
[2017-07-02 22:19] LABS: C-REACTIVE PROTEIN LESS THAN 0.29 MG/DL (0.00-0.30)
[2017-07-02 22:44] LABS: FREE T4 0.92 NG/DL (0.76-1.46)
[2017-07-02] MEDS ORDERED: TEMAZEPAM 7.5 MG CAP PO ONE (23:00)
[2017-07-03 03:43] VITALS: BP 194/81; PULSE 58; RESP 17; TEMP 98.9; O2SAT 96
[2017-07-03] MEDS ORDERED: cloNIDine HCL 0.1 MG TAB PO ONE (04:00)
[2017-07-03] MEDS: ACETAMIN 325 MG/BUTALBITAL 50 MG/CAFFEINE 40 MG TAB PO PRN ×2 (05:27→23:00)
[2017-07-03 06:10] VITALS: BP 119/58
[2017-07-03 08:17] VITALS: BP 122/62; PULSE 70; RESP 20; TEMP 98.2; O2SAT 96
[2017-07-03] MEDS ORDERED: TRIAMTERENE PO SCH (09:00)
[2017-07-03] MEDS ORDERED: KETOROLAC TROMETHAMINE 60 MG/2 ML (IM) VIAL IM ONE (09:00)
--- NOTE | 2017-07-03 09:30 | RADRPT ---
EXAM DATE/TIME: 07/03/2017 07:51 [facility] COMPARISON: No previous studies available for comparison. INDICATIONS : Metastatic disease. CONTRAST: 13 cc Omniscan (gadodiamide) IV MEDICAL HISTORY : Carcinoma, lung. Hypertension. Cardiovascular disease. SURGICAL HISTORY : Fusion, lumbar. Appendectomy. Cholecystectomy. ENCOUNTER: Initial ACUITY: 1 day PAIN SCORE: 0/10 LOCATION: Paraspinal TECHNIQUE: Multiplanar multisequence MRI of the thoracic spine was performed. FINDINGS: VERTEBRA: Normal vertebral body height. Homogeneous marrow signal. ALIGNMENT: There is mild kyphosis with dorsal angulation also at T11-12. Degenerative changes are seen greatest at T11-12. There is mild loss of height of T11 along the superior endplate. Minimal endplate edema at T11-12.. CORD: Normal position and configuration. POST CONTRAST: No abnormal areas of contrast enhancement seen. There is a lung lesion posteriorly within the right upper lobe measuring 1.2 cm. Small right pleural effusion. T1-T2: Normal. T2-T3: The thecal sac has a normal diameter. No evidence of disc bulge or protrusion. T3-T4: The thecal sac has a normal diameter. No evidence of disc bulge or protrusion. T4-T5: The thecal sac has a normal diameter. No evidence of disc bulge or protrusion. T5-T6: The thecal sac has a normal diameter. No evidence of disc bulge or protrusion. T6-T7: The thecal sac has a normal diameter. No evidence of disc bulge or protrusion. T7-T8: Small central protrusion abuts the thecal sac. No canal stenosis. T8-T9: The thecal sac has a normal diameter. No evidence of disc bulge or protrusion. T9-T10: The thecal sac has a normal diameter. No evidence of disc bulge or protrusion. T10-T11: The thecal sac has a normal diameter. No evidence of disc bulge or protrusion. T11-T12: The thecal sac has a normal diameter. No evidence of disc bulge or protrusion. T12-L1: The thecal sac has a normal diameter. No evidence of disc bulge or protrusion. CONCLUSION: 1. Kyphosis and degenerative changes lower lumbar spine. 2. Minimal old superior plate compression fracture T11. 3. No evidence for metastatic disease. 4. Posterior right upper lobe lung lesion and small right pleural effusion. Rick Lind MD on July 03, 2017 at 9:23 Board Certified Radiologist. This report was verified electronically.
--- NOTE | 2017-07-03 09:42 | RADRPT ---
EXAM DATE/TIME: 07/03/2017 07:51 [facility] COMPARISON: No previous studies available for comparison. INDICATIONS : Metastatic disease. CONTRAST: 13 cc Omniscan (gadodiamide) IV MEDICAL HISTORY : Carcinoma, lung. Hypertension. Cardiovascular disease. SURGICAL HISTORY : Appendectomy. Cholecystectomy. Fusion, lumbar. ENCOUNTER: Initial ACUITY: 1 day PAIN SCORE: 0/10 LOCATION: Paraspinal TECHNIQUE: Multiplanar, multisequence MRI examination of the cervical spine was performed. FINDINGS: VERTEBRAE: Normal vertebral body height. Heterogeneous marrow. Minimal retrolisthesis C4 on 5. Degenerative disc disease at C4-5 and C5-6 levels. Minimal endplate edema posteriorly at C4-5. No metastatic lesions. ALIGNMENT: No evidence of subluxation. CORD: Normal configuration and signal. POST FOSSA: The cerebellar tonsils are normal in position. POST-CONTRAST: No abnormal areas of enhancement are seen. C2-C3: The thecal sac has a normal configuration. There is no evidence of disc herniation or spinal canal stenosis. The neural foramina are patent bilaterally. C3-C4: Small posterior disc osteophyte complex without canal stenosis. The neural foramina are patent bilate rally. C4-C5: Moderate posterior disc osteophyte complex causing mild canal stenosis. Mild neural foraminal narrowi ng bilaterally. C5-C6: Moderate posterior disc osteophyte complex causing mild canal stenosis. Moderate neural foraminal earline rowing bilaterally. C6-C7: Moderate posterior disc osteophyte complex causing mild canal stenosis. Mild neural foraminal narrowi ng bilaterally. C7-T1: The thecal sac has a normal configuration. There is no evidence of disc herniation or spinal canal s tenosis. The neural foramina are patent bilaterally. CONCLUSION: 1. Multilevel posterior disc osteophyte complexes as described above. 2. No evidence for metastatic disease. Rick Lind MD on July 03, 2017 at 9:35 Board Certified Radiologist. This report was verified electronically.
--- NOTE | 2017-07-03 09:50 | RADRPT ---
EXAM DATE/TIME: 07/03/2017 07:51 [facility] COMPARISON: No previous studies available for comparison. INDICATIONS : Metastatic disease. CONTRAST: 13 cc Omniscan (gadodiamide) IV MEDICAL HISTORY : Carcinoma, lung. Hypertension. Cardiovascular disease. SURGICAL HISTORY : Appendectomy. Cholecystectomy. Fusion, lumbar. ENCOUNTER: Initial ACUITY: 1 day PAIN SCORE: 0/10 LOCATION: Paraspinal TECHNIQUE: Multiplanar multisequence MRI of the lumbar spine was performed with and without contrast. FINDINGS: The most caudal appearing lumbar vertebra is numbered as L5. VERTEBRAE: Homogeneous signal, with the exception of some endplate edema at T11-12 and L1-2. Diffuse disc desicc ation. Minimal anterolisthesis of L4 on L5. Minimal retrolisthesis L1 on L2. Exaggerated lordosis of the lumbar spine. Reactive changes of the facet at L4-5 CONUS: Normal level and configuration. POST CONTRAST: No abnormal areas of contrast enhancement are seen. T12-L1: The thecal sac has a normal diameter. No evidence of disc bulge or protrusion. The neural foramina are patent bilaterally. L1-L2: Minimal retrolisthesis. Mild broad-based disc bulge abuts ventral thecal sac without canal stenosis. The neural foramina are patent bilaterally. L2-L3: Mild broad-based disc bulge abuts ventral thecal sac without canal stenosis. The neural foramina are patent bilaterally. Mild facet arthropathy. L3-L4: Mild broad-based disc bulge abuts ventral thecal sac without canal stenosis. The neural foramina are patent bilaterally. Mild facet arthropathy. L4-L5: Minimal anterolisthesis. Mild broad-based disc bulge abuts ventral thecal sac without canal stenosis. Mild facet arthropathy. Reactive changes within the facets including some minimal fluid greater on t he left. Mild neural frontal narrowing on the right. Left neuroforamen is patent L5-S1: The thecal sac has a normal diameter. No evidence of disc bulge or protrusion. The neural foramina are patent bilaterally. Hypertrophic facets. CONCLUSION: 1. No evidence for metastatic disease. 2. Minimal retrolisthesis L1 on L2 and anterolisthesis L4 on L5. 3. Multilevel disc bulges. 4. Reactive facets at L4-5. Rick Lind MD on July 03, 2017 at 9:43 Board Certified Radiologist. This report was verified electronically.
[2017-07-03] MEDS: SODIUM CHLORIDE 0.9% FLUSH 10 ML FLUSH IV FLUSH SCH (10:04)
[2017-07-03] MEDS: ATORVASTATIN 20 MG TAB PO SCH (10:06)
[2017-07-03] MEDS: PANTOPRAZOLE SOD 40 MG DELAYED RELEASE TAB PO SCH (10:06)
[2017-07-03] MEDS: CELECOXIB 200 MG CAP PO SCH (10:06)
[2017-07-03] MEDS: FLUoxetine HCL 20 MG CAP PO SCH (10:06)
[2017-07-03] MEDS: VALSARTAN 160 MG TAB PO SCH (10:06)
--- NOTE | 2017-07-03 10:30 | HHI.PR ---
Subjective Remarks Follow-up visit sellar mass, headache. Patient seen and examined today sitting in bed. Complaints of headache that radiates towards her back, rated 9.5/10, states aggravated by MRI, states she usually relieves her headaches at home by taking ibuprofen 3 tablets with meals. Denies nausea, vomiting, diarrhea. Denies any visual changes. Reports occasional confusion. States she has some grandiose stories at times that her sons would tell her that did not happen. Awake, alert and oriented to self, place and states it's May. Objective Vitals Vital Signs Date Time Temp Pulse Resp B/P (MAP) Pulse Ox O2 Delivery O2 Flow Rate FiO2 07/03/17 08:17 98.2 70 20 122/62 (82) 96 07/03/17 06:10 119/58 (78) 07/03/17 03:43 98.9 58 17 194/81 (118) 96 07/02/17 23:19 98.7 64 16 160/71 (100) 95 07/02/17 21:43 62 20 195/86 (122) 97 07/02/17 21:13 98.5 61 16 175/77 (109) 98 07/02/17 18:04 18 07/02/17 16:51 98.2 77 18 126/67 (86) 93 07/02/17 15:37 07/02/17 15:00 70 17 106/61 (76) 95 Room Air I/O 07/02/17 07/02/17 07/02/17 07/03/17 07/03/17 07/03/17 07:00 15:00 23:00 07:00 15:00 23:00 Intake Total 500 ml Balance 500 ml Intake Oral 500 ml # Voids 3 # Bowel Movements 2 Result Diagram: 07/02/17 1015 07/02/17 1015 Imaging Last Impressions Thoracic Spine MRI 07/03/17 0000 Signed Impressions: Service Date/Time: Monday, July 03, 2017 07:51 - CONCLUSION: 1. Kyphosis and degenerative changes lower lumbar spine. 2. Minimal old superior plate compression fracture T11. 3. No evidence for metastatic disease. 4. Posterior right upper lobe lung lesion and small right pleural effusion. Rick Lind MD Lumbar Spine MRI 07/03/17 0000 Signed Impressions: Service Date/Time: Monday, July 03, 2017 07:51 - CONCLUSION: 1. No evidence for metastatic disease. 2. Minimal retrolisthesis L1 on L2 and anterolisthesis L4 on L5. 3. Multilevel disc bulges. 4. Reactive facets at L4- 5. Rick Lind MD Cervical Spine MRI 07/03/17 0000 Signed Impressions: Service Date/Time: Monday, July 03, 2017 07:51 - CONCLUSION: 1. Multilevel posterior disc osteophyte complexes as described above. 2. No evidence for metastatic disease. Rick Lind MD Head/Brain Mag Res Venography 07/02/17 0000 Signed Impressions: Service Date/Time: Sunday, July 02, 2017 19:37 - CONCLUSION: No evidence of cerebral sinus thrombosis. Jose Luis Maza MD Head Magnetic Resonance Angiography 07/02/17 0000 Signed Impressions: Service Date/Time: Sunday, July 02, 2017 19:37 - CONCLUSION: Mild focal segmental stenosis involving the right middle cerebral artery proximal to the bifurcation. Otherwise unremarkable MRA of the brain. Jose Luis Maza MD Brain MRI 07/02/17 0000 Signed Impressions: Service Date/Time: Sunday, July 02, 2017 19:37 - CONCLUSION: 1. 1.3 x 1.0 cm right-sided pituitary nodule consistent with probable adenoma. 2. Mild periventricular and subcortical white matter small vessel ischemic changes bilaterally. 3. Mild bilateral pontine ischemic changes. 4. No acute hemorrhage, acute infarct, midline shift or extra-axial fluid collections. Jose Luis Maza MD Objective Remarks GENERAL: This is a well-nourished, well-developed patient, in no apparent distress. SKIN: Warm and dry HEENT: Normocephalic. Pupils equal round and reactive. Nose without bleeding. Airway patent. NECK: Trachea midline. No JVD. Supple. CARDIOVASCULAR: Regular rate and rhythm without murmurs, gallops, or rubs. RESPIRATORY: Clear to auscultation. Breath sounds equal bilaterally. No wheezes , rales, or rhonchi. GASTROINTESTINAL: Abdomen soft, non-tender, nondistended. Bowel Sounds normoactive x4. MUSCULOSKELETAL: Extremities without clubbing, cyanosis, or edema. NEUROLOGICAL: Awake and alert. Oriented to place, person. Moves all extremities. Normal speech. A/P Problem List: (1) Mass, brain ICD Code: G93.9 - Disorder of brain, unspecified (2) Headache ICD Code: R51 - Headache Status: Acute Assessment and Plan Patient is 68-year-old female with primary medical condition of hypertension, hyperlipidemia, anxiety who came in to the hospital for further evaluation set by her neurologist Dr. Rucker. Sellar mass Headaches - Outside MRI of the brain found sellar mass - Consult neurology for further evaluation and recommendation. Fioricet Zofran for headache and nausea/vomiting. - Consult neurosurgery for evaluation recommendation. Recommended to consult endocrinology for full pituitary workup. Ophthalmology for visual field assessment. - Check prolactin, 24-hour urine free cortisol, IGFwant to rule out functioning pituitary adenoma - pending results - TSH, free T4 within normal, ESR within normal, C-reactive protein less than 0.29 - Vitamin B12 1019 - Fioricet, adjusted to 6 hours when necessary, Toradol given for headache and back pain post MRI - patient on celebrex - MRI showed 1. 1.3 x 1.0 cm right-sided pituitary no dual consistent with probable adenoma. 2. Mild periventricular and subcortical white matter small vessel ischemic changes bilaterally. 3. Mild bilateral pontine ischemic changes. 4. No acute hemorrhage, acute infarct, midline shift or extra axial fluid collections - Thoracic spine MRI showed 1. Kyphosis and degenerative changes lower lumbar spine. 2. Minimal old superior plate compression fracture T11. 3. No evidence of metastatic disease. 4. Posterior right upper lobe lung lesion and small right pleural effusion. - Lumbar MRI showed 1. No evidence of metastatic disease. 2. Minimal anterolisthesis L1 on L2 and anterolisthesis L4 on L5. 3. Multilevel disc bulges. 4. Reactive facets at L4 to L5. - Cervical MRI showed 1. Multilevel posterior disc osteophyte complexes as described above. 2. No evidence of metastatic disease. - May order CXR to eval RUL lung lesion possible bx. - Will await neurology recommendations Other chronic medical conditions including hypertension, hyperlipidemia, anxiety Resume outpatient medications valsartan 160 mg by mouth twice a day DVT prophylaxis: Bilateral SCDs Discharge Planning Pending neurology and neurosurgery recommendation. Pending pituitary work up Kelly Box Jul 03, 2017 10:30
--- NOTE | 2017-07-03 11:43 | HHI.NSPN ---
Note Status Status: Progress Note Interval History Diagnosis pituitary mass Interval History This is a 77 year-old female with a history of arterial hypertension, hyperlipidemia was sent to the ED by her neurologist Dr. Weinstein for evaluation of one month history of headaches. She reports that her headaches started in December, following lumbar surgery at the [facility]. She continues to suffer from severe, intractable low back pain. She reports only 2 o 3 days of relief following her surgery. In addition, she has a recent finding of sellar Mass on her brain MRI. She reports throbbing type of headaches rated 9/10 in intensity without any photophobia, visual field defect, congestions, rarely associated with nausea without any emesis. She also reports vision no any black spots from a right eye and she also complained of unsteady gait over the past month for which now she is using a walker to ambulate. She also reports memory loss. Denies visual loss. She has a history of prior removal of cataract. She endorses decreased appetite and she has no GI bleed. She denies any any focal weakness, sensory loss, incontinence of stool or urine. She was evaluated by a neurologist. Neurosurgical consultation was requested 07/03. She continues to report generalized headaches. No focal weakness Labs, Micro, & Vital Signs Results Date Time Temp Pulse Resp B/P (MAP) Pulse Ox O2 Delivery O2 Flow Rate FiO2 07/03/17 08:17 98.2 70 20 122/62 (82) 96 07/03/17 06:10 119/58 (78) 07/03/17 03:43 98.9 58 17 194/81 (118) 96 07/02/17 23:19 98.7 64 16 160/71 (100) 95 07/02/17 21:43 62 20 195/86 (122) 97 07/02/17 21:13 98.5 61 16 175/77 (109) 98 07/02/17 18:04 18 07/02/17 16:51 98.2 77 18 126/67 (86) 93 07/02/17 15:37 07/02/17 15:00 70 17 106/61 (76) 95 Room Air Constitutional Vital Signs Date Time Temp Pulse Resp B/P (MAP) Pulse Ox O2 Delivery O2 Flow Rate FiO2 07/03/17 08:17 98.2 70 20 122/62 (82) 96 07/03/17 06:10 119/58 (78) 07/03/17 03:43 98.9 58 17 194/81 (118) 96 07/02/17 23:19 98.7 64 16 160/71 (100) 95 07/02/17 21:43 62 20 195/86 (122) 97 07/02/17 21:13 98.5 61 16 175/77 (109) 98 07/02/17 18:04 18 07/02/17 16:51 98.2 77 18 126/67 (86) 93 07/02/17 15:37 07/02/17 15:00 70 17 106/61 (76) 95 Room Air Review of Systems Constitutional: DENIES: Diaphoretic episodes, Fatigue, Fever, Weight gain, Weight loss, Chills, Dizziness, Change in appetite, Night Sweats Endocrine: DENIES: Abnorml menstrual pattern, Heat/cold intolerance, Polydipsia , Polyuria, Polyphagia Eyes: DENIES: Blurred vision, Diplopia, Eye inflammation, Eye pain, Vision loss , Photosensitivity, Double Vision Ears, nose, mouth, throat: DENIES: Tinnitus, Hearing loss, Vertigo, Nasal discharge, Oral lesions, Throat pain, Hoarseness, Ear Pain, Running Nose, Epistaxis, Sinus Pain, Toothache, Odynophagia Respiratory: DENIES: Apneas, Cough, Snoring, Wheezing, Hemoptysis, Sputum production, Shortness of breath Cardiovascular: DENIES: Chest pain, Palpitations, Syncope, Dyspnea on Exertion , PND, Lower Extremity Edema, Orthopnea, Claudication Genitourinary: DENIES: Abnormal vaginal bleeding, Dysmenorrhea, Dyspareunia, Sexual dysfunction, Urinary frequency, Urinary incontinence, Urgency, Hematuria , Dysuria, Nocturia, Vaginal discharge Musculoskeletal: COMPLAINS OF: Back pain, DENIES: Joint pain, Muscle aches, Stiffness, Joint Swelling, Neck pain Integumentary: DENIES: Abnormal pigmentation, Pruritus, Rash, Nail changes, Breast masses, Breast skin changes, Nipple discharge Hematologic/lymphatic: DENIES: Bruising, Lymphadenopathy Immunologic/allergic: DENIES: Eczema, Urticaria Neurologic: COMPLAINS OF: Headache, DENIES: Abnormal gait, Localized weakness, Paresthesias, Seizures, Speech Problems, Tremor, Poor Balance Psychiatric: COMPLAINS OF: Confusion, DENIES: Anxiety, Mood changes, Depression , Hallucinations, Agitation, Suicidal Ideation, Homicidal Ideation, Delusions Physical Exam MS Gomez is alert, awake and oriented to time, place and person. Speech is fluent. Cranial nerve examination demonstrates the pupils to be equal, round, and reactive to light. Extra-ocular movements are intact. Facial motor and sensory function are normal and symmetrical. Gross hearing is intact, bilaterally. The uvula is midline and elevates symmetrically with the soft palate. Sternocleidomastoid and trapezius muscles have normal and symmetrical strength. Other cranial nerves are intact. Neck is soft and supple. Cervical spine has a full range of motion in anterior flexion, extension, lateral bending, and rotation without pain. There is no tenderness to palpation to the spinous processes or paraspinal muscles. Muscle testing reveals normal bulk and tone overall without rigidity, spasticity , fasciculations, or atrophy. Muscle strength is 5/5 in all muscle groups of both upper extremities including deltoid, biceps, triceps, brachioradialis, wrist extension and reed dipper. In the lower extremities, strength is 5/5 in both iliopsoas, quadriceps, hamstrings, plantar flexion, dorsiflexion, and extensor hallicus longus. Sensory examination is intact to light touch and sharp/dull discrimination in both the upper and lower extremities, symmetrically. Deep tendon reflexes are 2+ and symmetrical in the biceps, triceps, and brachioradialis, bilaterally, in the upper extremities. In the lower extremities , the patellar and Achilles are 2+, bilaterally. There is a bilateral plantar flexion response. Hoffmanns sign is negative. There is no clonus or other abnormal reflexes noted. Cerebellar examination is intact to [id number] test, rapid rhythmic alternating motion. Lungs: clear, nonlabored breathing, no wheezing Heart: S1, S2, regular rhythm and rate Skin: warm and dry, no cyanosis. Medical Decision Making [facility] Remarks Last 48 hours Impressions Thoracic Spine MRI 07/03/17 0000 Signed Impressions: Service Date/Time: Monday, July 03, 2017 07:51 - CONCLUSION: 1. Kyphosis and degenerative changes lower lumbar spine. 2. Minimal old superior plate compression fracture T11. 3. No evidence for metastatic disease. 4. Posterior right upper lobe lung lesion and small right pleural effusion. Rick Lind MD Lumbar Spine MRI 07/03/17 Signed Impressions: Service Date/Time: Monday, July 03, 2017 07:51 - CONCLUSION: 1. No evidence for metastatic disease. 2. Minimal retrolisthesis L1 on L2 and anterolisthesis L4 on L5. 3. Multilevel disc bulges. 4. Reactive facets at L4- 5. Rick Lind MD Cervical Spine MRI 07/03/17 Signed Impressions: Service Date/Time: Monday, July 03, 2017 07:51 - CONCLUSION: 1. Multilevel posterior disc osteophyte complexes as described above. 2. No evidence for metastatic disease. Rick Lind MD Head/Brain Mag Res Venography 07/02/17 Signed Impressions: Service Date/Time: Sunday, July 02, 2017 19:37 - CONCLUSION: No evidence of cerebral sinus thrombosis. Jose Luis Maza MD Head Magnetic Resonance Angiography 07/02/17 Signed Impressions: Service Date/Time: Sunday, July 02, 2017 19:37 - CONCLUSION: Mild focal segmental stenosis involving the right middle cerebral artery proximal to the bifurcation. Otherwise unremarkable MRA of the brain. Jose Luis Maza MD Brain MRI 07/02/17 Signed Impressions: Service Date/Time: Sunday, July 02, 2017 19:37 - CONCLUSION: 1. 1.3 x 1.0 cm right-sided pituitary nodule consistent with probable adenoma. 2. Mild periventricular and subcortical white matter small vessel ischemic changes bilaterally. 3. Mild bilateral pontine ischemic changes. 4. No acute hemorrhage, acute infarct, midline shift or extra-axial fluid collections. Jose Luis Maza MD Attending Statement Neuro. continue neuro checks. I reviewed her MRI of the brain, which show shows an incidental 1 cm pituitary adenoma. I do not see any evidence of apoplexy. Visual sarmiento seem to be intact. I recommend nonoperative treatment I still recommend. CONSULT [facility] for a full putuitary workup, as most prolactinomas can be managed medically with medications Consult ophtalmology to establish her baseline visual field assessment and for follow-up In regards to her chronic low back pain, she tells me that since she thinks she has a cerebrospinal fluid leak on her lumbar region. I did review her MRIs of the cervical thoracic and lumbar spine. She has multilevel degenerative disc disease and spondylosis I will defer further care to the surgeon who recently performed her lumbar surgery, at the [facility]. These could be done as an outpatient Pulmonary.. Continue aggressive pulmonary toilette, nasotracheal suction, and breathing treatments with nebulizers. Nutrition. NPO Renal. monitor closely urine output, BUN and creatinine Endocrine. Monitor serial Acu checks and SSI as needed in detail ID monitor for signs of infection Protonix for stress ulcer prophylaxis Pranay flores and SCD's for DVT prophylaxis. Santhosh Gaviria MD Jul 03, 2017 11:43
[2017-07-03] MEDS ORDERED: WHEE1EAC (11:47)
--- NOTE | 2017-07-03 11:49 | HHI.PR ---
Review/Management Diagnosis/Plan: (1) Headache ICD Codes: R51 - Headache Status: Acute Plan: mra/mrv negative mri brain pit adenoma esr/crp nml recs check csf start depakote er 250mg bid for headaches check ct chest p.t. inpt admission (2) Pituitary adenoma ICD Codes: D35.2 - Benign neoplasm of pituitary gland Status: Acute Plan: endocrine w/u pending (3) Cognitive impairment ICD Codes: R41.89 - Other symptoms and signs involving cognitive functions and awareness Status: Chronic (4) Lumbar spondylosis ICD Codes: M47.816 - Spondylosis without myelopathy or radiculopathy, lumbar region (5) Lung cancer ICD Codes: C34.90 - Malignant neoplasm of unspecified part of unspecified bronchus or lung Status: Chronic Plan: recently dx'd Subjective Subjective Comments No acute events reported +headache, but better No chest pain No dyspnea Active Medications Current Medications Medications (Trade) Dose Ordered Sig/Ruben Route Start Time Stop Time Status Last Admin (NS Flush) 2 ml UNSCH PRN IV FLUSH 07/02/17 13:00 (NS Flush) 2 ml BID IV FLUSH 07/02/17 21:00 07/03/17 10:04 (Tylenol) 650 mg Q4H PRN PO 07/02/17 13:00 (Zofran Inj) 4 mg Q6H PRN IVP 07/02/17 13:00 (Tylenol) 650 mg Q6H PRN PO 07/02/17 13:00 (Narcan Inj) 0.4 mg UNSCH PRN IV PUSH 07/02/17 13:00 (Lipitor) 20 mg DAILY PO 07/03/17 09:00 07/03/17 10:06 (CeleBREX) 200 mg BID PO 07/02/17 21:00 07/03/17 10:06 (PROzac) 20 mg DAILY PO 07/03/17 09:00 07/03/17 10:06 (Breo Ellipta 100-25 Inh) 1 puff EVERY OTHER DAY INH 07/04/17 09:00 (Singulair) 10 mg DAILY PO 07/03/17 09:00 (Protonix) 40 mg DAILY PO 07/03/17 09:00 07/03/17 10:06 (Diovan) 160 mg BID PO 07/02/17 21:00 07/03/17 10:06 Patient Own Medication PT OWN MED: DYRENIUM (TRIAMTERE... DAILY PO 07/03/17 09:00 Future Hold (Fioricet 325-50-40) 1 tab Q6HR PRN PO 07/03/17 11:00 Allergies Allergies Coded Allergies bupropion (Unverified Allergy, Severe, FLU-LIKE SXS, 01/12/17) nefazodone (Unverified Allergy, Severe, FLU-LIKE SXS, 01/12/17) hydrocodone (Verified Allergy, Unknown, 07/02/17) metoclopramide (Verified Allergy, Unknown, 07/02/17) nebivolol (Verified Allergy, Unknown, 07/02/17) tramadol (Verified Allergy, Unknown, 07/02/17) aspirin (Verified Adverse Reaction, Unknown, 07/02/17) codeine (Verified Adverse Reaction, Unknown, 07/02/17) dipyridamole (Verified Adverse Reaction, Unknown, 07/02/17) Review of Systems Constitutional: Negative except HPI Eye: Negative Except HPI ENMT: Negative except HPI Respiratory: Negative except HPI Cardiovascular: Negative except HPI Gastrointestinal: Negative except HPI Gabino/Lymph: Negative except HPI Musculoskeletal: Negative except HPI Neurologic: Negative except HPI Psychiatric: Negative except HPI All other ROS: ROS reviewed as documented in chart Exam I&O / VS Vital Signs Date Time Temp Pulse Resp B/P (MAP) Pulse Ox O2 Delivery O2 Flow Rate FiO2 07/03/17 08:17 98.2 70 20 122/62 (82) 96 07/03/17 06:10 119/58 (78) 07/03/17 03:43 98.9 58 17 194/81 (118) 96 07/02/17 23:19 98.7 64 16 160/71 (100) 95 07/02/17 21:43 62 20 195/86 (122) 97 07/02/17 21:13 98.5 61 16 175/77 (109) 98 07/02/17 18:04 18 07/02/17 16:51 98.2 77 18 126/67 (86) 93 07/02/17 15:37 07/02/17 15:00 70 17 106/61 (76) 95 Room Air General: Alert and Oriented, No acute distress Eye: PERRL, EOMI Respiratory: Non-labored respirations, Symmetrical expansion Cardiology: Normal rate Neurologic: Alert, Oriented, Normal motor, No focal defects, CN II-XII intact, Normal DTR's Psychiatric: Cooperative, Appropriate mood & affect Objective Micro and Labs Laboratory Tests Test 07/02/17 21:05 Erythrocyte Sedimentation Rate 9 C-Reactive Protein LESS THAN 0.29 Vitamin B12 Level 1019 Free Thyroxine 0.92 Thyroid Stimulating Hormone 3rd Gen 2.370 Caden Rucker MD Jul 03, 2017 11:49
[2017-07-03] MEDS: DIVALPROEX SODIUM E.R. 250 MG TAB PO SCH (12:30)
[2017-07-03] MEDS: MONTELUKAST SODIUM 10 MG TAB PO SCH (12:36)
[2017-07-03] MEDS ORDERED: IOHEXOL 350 MG/ML 10 ML VIAL (for RAD DIAG) IVCONTRAST ONE (12:59)
--- NOTE | 2017-07-03 13:24 | RADRPT ---
EXAM DATE/TIME: 07/03/2017 12:59 [facility] COMPARISON: No previous studies available for comparison. INDICATIONS : Abnormal MRI. IV CONTRAST: 68 cc Omnipaque 350 (iohexol) IV ; Cumulative dose for multiple exams. ORAL CONTRAST: No oral contrast ingested. RADIATION DOSE: 10.98 CTDIvol (mGy) ; Combined studies MEDICAL HISTORY : Hypertension. skin cancer, lung cancer SURGICAL HISTORY : Hysterectomy. Cholecystectomy.Appendectomy. ENCOUNTER: Initial ACUITY: 1 day PAIN SCALE: 0/10 LOCATION: Bilateral abdomen TECHNIQUE: Volumetric scanning of the abdomen and pelvis was performed. Using automated exposure control and ad justment of the mA and/or kV according to patient size, radiation dose was kept as low as reasonably achievable to obtain optimal diagnostic quality images. DICOM format image data is available electro nically for review and comparison. FINDINGS: LOWER LUNGS: Right basilar consolidation and small right pleural effusion. LIVER: Decreased attenuation without lesion. There is no dilation of the biliary tree. Cholecystectomy clip s. The common bile duct is dilated with soft tissue nodule at the ampulla. Common bile duct measures 12 mm distally. SPLEEN: Normal size without lesion. PANCREAS: Within normal limits. KIDNEYS: Normal in size and shape. There is no mass, stone or hydronephrosis. ADRENAL GLANDS: Within normal limits. VASCULAR: There is no aortic aneurysm. BOWEL/MESENTERY: Scattered diverticula without diverticulitis. There is no free intraperitoneal air or fluid. ABDOMINAL WALL: Within normal limits. RETROPERITONEUM: There is no lymphadenopathy. BLADDER: No wall thickening or mass. REPRODUCTIVE: Within normal limits. INGUINAL: There is no lymphadenopathy or hernia. MUSCULOSKELETAL: Degenerative changes thoracic and lumbar spine. CONCLUSION: 1. Small pleural effusion right basilar consolidation. 2. Dilatation of the common bile duct with suggestion of a 1.2 cm soft tissue nodule at the ampulla. ERCP recommended. 3. Right basilar consolidation and small right pleural effusion. 4. Cholecystectomy and mild fatty infiltration. 5. Scattered diverticulosis without diverticulitis. Rick Lind MD on July 03, 2017 at 13:15 Board Certified Radiologist. This report was verified electronically.
--- NOTE | 2017-07-03 13:27 | RADRPT ---
EXAM DATE/TIME: 07/03/2017 12:59 [facility] COMPARISON: No previous studies available for comparison. INDICATIONS : Abnormal MRI. IV CONTRAST: 68 cc Omnipaque 350 (iohexol) IV ; Cumulative dose for multiple exams. RADIATION DOSE: 10.98 CTDIvol (mGy) ; Combined studies MEDICAL HISTORY : Hypertension. skin cancer, lung cancer SURGICAL HISTORY : Hysterectomy. Appendectomy.Cholecystectomy. ENCOUNTER: Initial ACUITY: 1 day PAIN SCALE: 0/10 LOCATION: Bilateral chest TECHNIQUE: Volumetric scanning of the chest was performed. Using automated exposure control and adjustment of t he mA and/or kV according to patient size, radiation dose was kept as low as reasonably achievable to obtain optimal diagnostic quality images. DICOM format image data is available electronically for review and comparison. Follow-up recommendations for detected pulmonary nodules are based at a minimum on nodule size and pa tient risk factors according to Fleischner Society Guidelines. FINDINGS: LUNGS: Spiculated nodule right apex posteriorly measures 1.2 x 0.8 cm. Moderate emphysema. There is also a 7 mm nodule posteriorly in the right lower lobe. Slight consolidative changes right lower lobe. Parenc hymal opacity seen within the left upper lobe PLEURA: Small right pleural effusion. There is no pleural thickening or pleural effusion on the left. MEDIASTINUM: The heart and great vessels demonstrate no acute abnormality. There is no mediastinal or hilar lymph adenopathy. AXILLAE: Within normal limits. No lymphadenopathy. SKELETAL: Within normal limits for patient age. MISCELLANEOUS: The visualized upper abdominal organs demonstrate no acute abnormality. CONCLUSION: 1. Spiculated nodule right upper lobe measures 1.2 cm. 2. 7 mm nodule right lower lobe. 3. Nonspecific irregular parenchymal opacity in the lingula. 4. Right basal consolidation and small right pleural effusion. Rick Lind MD on July 03, 2017 at 13:20 Board Certified Radiologist. This report was verified electronically.
[2017-07-03 15:23] VITALS: BP 140/60; PULSE 68; RESP 18; TEMP 97.6; O2SAT 20
[2017-07-03 16:54] LABS: INTERNATIONAL NORMALIZED RATIO 1.2 RATIO; PROTHROMBIN TIME - PATIENT 11.7 SEC (9.8-11.6)
[2017-07-03 18:00] VITALS: BP 168/75; PULSE 63; RESP 18; TEMP 98; O2SAT 95
[2017-07-03 20:26] VITALS: BP 152/94; PULSE 63; RESP 18; TEMP 98; O2SAT 95
[2017-07-04] VITALS (11 sets, daily range): BP systolic 117–171; BP diastolic 55–73; PULSE 60–73; RESP 17–20; TEMP 97.2–98.1; O2SAT 94–97
[2017-07-04] MEDS: VALSARTAN 160 MG TAB PO SCH ×3 (00:09→22:57)
[2017-07-04] MEDS: SODIUM CHLORIDE 0.9% FLUSH 10 ML FLUSH IV FLUSH SCH ×3 (00:09→22:58)
[2017-07-04] MEDS: DIVALPROEX SODIUM E.R. 250 MG TAB PO SCH ×2 (00:09→09:41)
[2017-07-04] MEDS: CELECOXIB 200 MG CAP PO SCH ×3 (00:09→22:59)
[2017-07-04] MEDS: FLUoxetine HCL 20 MG CAP PO SCH (09:40)
[2017-07-04] MEDS: ATORVASTATIN 20 MG TAB PO SCH (09:41)
[2017-07-04] MEDS: PANTOPRAZOLE SOD 40 MG DELAYED RELEASE TAB PO SCH (09:41)
[2017-07-04] MEDS: MONTELUKAST SODIUM 10 MG TAB PO SCH (09:41)
[2017-07-04] MEDS: FLUTICASONE 100 MCG/VILANTEROL 25 MCG INHALER INH SCH (09:41)
[2017-07-04] MEDS: ACETAMIN 325 MG/BUTALBITAL 50 MG/CAFFEINE 40 MG TAB PO PRN ×2 (10:42→22:57)
--- NOTE | 2017-07-04 12:06 | HHI.PR ---
Objective Vitals Vital Signs Date Time Temp Pulse Resp B/P (MAP) Pulse Ox O2 Delivery O2 Flow Rate FiO2 07/04/17 11:50 16 07/04/17 08:33 98.1 65 20 171/69 (103) 94 07/04/17 07:49 65 07/04/17 04:58 97.7 63 18 117/55 (75) 94 07/04/17 00:51 60 18 129/61 (83) 95 07/04/17 00:26 97.9 69 18 167/73 (104) 95 07/04/17 00:00 73 07/03/17 20:26 98.0 63 18 152/94 (113) 95 07/03/17 18:00 98.0 63 18 168/75 (106) 95 07/03/17 15:23 97.6 68 18 140/60 (86) 20 I/O 07/03/17 07/03/17 07/03/17 07/04/17 07/04/17 07/04/17 07:00 15:00 23:00 07:00 15:00 23:00 Intake Total 500 ml 240 ml Balance 500 ml 240 ml Intake Oral 500 ml 240 ml # Voids 3 1 # Bowel Movements 2 Result Diagram: 07/02/17 1015 07/02/17 1015 A/P Problem List: (1) Mass, brain ICD Code: G93.9 - Disorder of brain, unspecified (2) Headache ICD Code: R51 - Headache Status: Acute González Childs MD Jul 04, 2017 12:06
--- NOTE | 2017-07-04 12:20 | HHI.PR ---
Review/Management Diagnosis/Plan: (1) Headache ICD Codes: R51 - Headache Status: Acute Plan: ?paraneoplastic syndrome mra/mrv negative mri brain pit adenoma esr/crp nml recs check csf-pending increase depakote er 500mg bid for headaches check ct chest p.t. f/u paraneoplastic panel d/c planning if csf negative d/w pt/family/medical appreciate medical team (2) Pituitary adenoma ICD Codes: D35.2 - Benign neoplasm of pituitary gland Status: Acute Plan: endocrine w/u pending (3) Cognitive impairment ICD Codes: R41.89 - Other symptoms and signs involving cognitive functions and awareness Status: Chronic (4) Lumbar spondylosis ICD Codes: M47.816 - Spondylosis without myelopathy or radiculopathy, lumbar region (5) Lung cancer ICD Codes: C34.90 - Malignant neoplasm of unspecified part of unspecified bronchus or lung Status: Chronic Plan: recently dx'd Subjective Subjective Comments No acute events reported + headache No chest pain No dyspnea Active Medications Current Medications Medications (Trade) Dose Ordered Sig/Ruben Route Start Time Stop Time Status Last Admin (NS Flush) 2 ml UNSCH PRN IV FLUSH 07/02/17 13:00 (NS Flush) 2 ml BID IV FLUSH 07/02/17 21:00 07/04/17 09:42 (Tylenol) 650 mg Q4H PRN PO 07/02/17 13:00 (Zofran Inj) 4 mg Q6H PRN IVP 07/02/17 13:00 (Tylenol) 650 mg Q6H PRN PO 07/02/17 13:00 (Narcan Inj) 0.4 mg UNSCH PRN IV PUSH 07/02/17 13:00 (Lipitor) 20 mg DAILY PO 07/03/17 09:00 07/04/17 09:41 (CeleBREX) 200 mg BID PO 07/02/17 21:00 07/04/17 09:40 (PROzac) 20 mg DAILY PO 07/03/17 09:00 07/04/17 09:40 (Breo Ellipta 100-25 Inh) 1 puff EVERY OTHER DAY INH 07/04/17 09:00 07/04/17 09:41 (Singulair) 10 mg DAILY PO 07/03/17 09:00 07/04/17 09:41 (Protonix) 40 mg DAILY PO 07/03/17 09:00 07/04/17 09:41 (Diovan) 160 mg BID PO 07/02/17 21:00 07/04/17 09:41 Patient Own Medication PT OWN MED: DYRENIUM (TRIAMTERE... DAILY PO 07/03/17 09:00 Future Hold (Fioricet 325-50-40) 1 tab Q6HR PRN PO 07/03/17 11:00 07/04/17 10:42 (Depakote Er) 250 mg BID PO 07/03/17 12:30 07/04/17 09:41 Allergies Allergies Coded Allergies bupropion (Unverified Allergy, Severe, FLU-LIKE SXS, 01/12/17) nefazodone (Unverified Allergy, Severe, FLU-LIKE SXS, 01/12/17) hydrocodone (Verified Allergy, Unknown, 07/02/17) metoclopramide (Verified Allergy, Unknown, 07/02/17) nebivolol (Verified Allergy, Unknown, 07/02/17) tramadol (Verified Allergy, Unknown, 07/02/17) aspirin (Verified Adverse Reaction, Unknown, 07/02/17) codeine (Verified Adverse Reaction, Unknown, 07/02/17) dipyridamole (Verified Adverse Reaction, Unknown, 07/02/17) Review of Systems Constitutional: Negative except HPI Eye: Negative Except HPI ENMT: Negative except HPI Respiratory: Negative except HPI Cardiovascular: Negative except HPI Gastrointestinal: Negative except HPI Gabino/Lymph: Negative except HPI Musculoskeletal: Negative except HPI Neurologic: Negative except HPI Psychiatric: Negative except HPI All other ROS: ROS reviewed as documented in chart Exam I&O / VS Vital Signs Date Time Temp Pulse Resp B/P (MAP) Pulse Ox O2 Delivery O2 Flow Rate FiO2 07/04/17 11:50 16 07/04/17 08:33 98.1 65 20 171/69 (103) 94 07/04/17 07:49 65 07/04/17 04:58 97.7 63 18 117/55 (75) 94 07/04/17 00:51 60 18 129/61 (83) 95 07/04/17 00:26 97.9 69 18 167/73 (104) 95 07/04/17 00:00 73 07/03/17 20:26 98.0 63 18 152/94 (113) 95 07/03/17 18:00 98.0 63 18 168/75 (106) 95 07/03/17 15:23 97.6 68 18 140/60 (86) 20 General: Alert and Oriented, No acute distress Eye: PERRL, EOMI Respiratory: Non-labored respirations, Symmetrical expansion Cardiology: Normal rate Neurologic: Alert, Oriented, Normal motor, No focal defects, CN II-XII intact, Normal DTR's Psychiatric: Cooperative, Appropriate mood & affect Objective Micro and Labs Laboratory Tests Test 07/03/17 16:27 Prothrombin Time 11.7 Prothromb Time International Ratio 1.2 Activated Partial Thromboplast Time 26.2 Caden Rucker MD Jul 04, 2017 12:20
--- NOTE | 2017-07-04 13:05 | HHI.PR ---
Subjective Remarks still complaining of headache no nausea or vomiting no blurry vision I discussed with her and her family as well as Dr. Davalos, he would like to obtain a lumbar puncture and then if this is negative possibly discharge for the patient to follow up as an outpatient No event overnight Objective Vitals Vital Signs Date Time Temp Pulse Resp B/P (MAP) Pulse Ox O2 Delivery O2 Flow Rate FiO2 07/04/17 12:46 97.2 63 18 138/62 (87) 97 07/04/17 11:50 16 07/04/17 08:33 98.1 65 20 171/69 (103) 94 07/04/17 07:49 65 07/04/17 04:58 97.7 63 18 117/55 (75) 94 07/04/17 00:51 60 18 129/61 (83) 95 07/04/17 00:26 97.9 69 18 167/73 (104) 95 07/04/17 00:00 73 07/03/17 20:26 98.0 63 18 152/94 (113) 95 07/03/17 18:00 98.0 63 18 168/75 (106) 95 07/03/17 15:23 97.6 68 18 140/60 (86) 20 I/O 07/03/17 07/03/17 07/03/17 07/04/17 07/04/17 07/04/17 07:00 15:00 23:00 07:00 15:00 23:00 Intake Total 500 ml 240 ml Balance 500 ml 240 ml Intake Oral 500 ml 240 ml # Voids 3 1 # Bowel Movements 2 Result Diagram: 07/02/17 1015 07/02/17 1015 Objective Remarks GENERAL: This is a well-nourished, well-developed patient, in no apparent distress. SKIN: No rashes, warm and dry HEAD: Atraumatic. Normocephalic. EYES: Pupils equal round and reactive. Extraocular motions intact. No scleral icterus. ENT: Nose without bleeding, or drainage, Airway patent. NECK: Trachea midline. Supple CARDIOVASCULAR: Regular rate and rhythm without murmurs, gallops, or rubs. RESPIRATORY: Fair air entry bilaterally. No wheezes, rales, or rhonchi. GASTROINTESTINAL: Abdomen soft, non-tender, nondistended. Positive bowel sounds MUSCULOSKELETAL: Extremities without clubbing, cyanosis, or edema. Pedal pulses appreciated NEUROLOGICAL: Awake and alert [place] [id number], cranial nerves II-12 intact, moves all extremity. Normal speech.no focal neurological deficit A/P Problem List: (1) Mass, brain ICD Code: G93.9 - Disorder of brain, unspecified (2) Headache ICD Code: R51 - Headache Status: Acute Assessment and Plan 2/4: Discussed with neurology and with patient and family,Plan: To obtain lumbar puncture and dependence on the result will take further steps A/P: Patient is 68-year-old female with primary medical condition of hypertension, hyperlipidemia, anxiety who came in to the hospital for further evaluation set by her neurologist Dr. Rucker. Sellar mass Headaches - Outside MRI of the brain found sellar mass - Consult neurology for further evaluation and recommendation. Fioricet Zofran for headache and nausea/vomiting. - Consult neurosurgery for evaluation recommendation. Recommended to consult endocrinology for full pituitary workup. Ophthalmology for visual field assessment. - Check prolactin, 24-hour urine free cortisol, IGFwant to rule out functioning pituitary adenoma - pending results - TSH, free T4 within normal, ESR within normal, C-reactive protein less than 0.29 - Vitamin B12 1019 - Fioricet, adjusted to 6 hours when necessary, Toradol given for headache and back pain post MRI - patient on celebrex - MRI showed 1. 1.3 x 1.0 cm right-sided pituitary no dual consistent with probable adenoma. 2. Mild periventricular and subcortical white matter small vessel ischemic changes bilaterally. 3. Mild bilateral pontine ischemic changes. 4. No acute hemorrhage, acute infarct, midline shift or extra axial fluid collections - Thoracic spine MRI showed 1. Kyphosis and degenerative changes lower lumbar spine. 2. Minimal old superior plate compression fracture T11. 3. No evidence of metastatic disease. 4. Posterior right upper lobe lung lesion and small right pleural effusion. - Lumbar MRI showed 1. No evidence of metastatic disease. 2. Minimal anterolisthesis L1 on L2 and anterolisthesis L4 on L5. 3. Multilevel disc bulges. 4. Reactive facets at L4 to L5. - Cervical MRI showed 1. Multilevel posterior disc osteophyte complexes as described above. 2. No evidence of metastatic disease. - May order CXR to eval RUL lung lesion possible bx. - Will await neurology recommendations Other chronic medical conditions including hypertension, hyperlipidemia, anxiety Resume outpatient medications valsartan 160 mg by mouth twice a day DVT prophylaxis: Bilateral SCDs González Childs MD Jul 04, 2017 13:05
--- NOTE | 2017-07-04 14:44 | HHI.NSPN ---
Note Status Status: Progress Note Interval History Diagnosis pituitary mass Interval History This is a 77 year-old female with a history of arterial hypertension, hyperlipidemia was sent to the ED by her neurologist Dr. Weinstein for evaluation of one month history of headaches. She reports that her headaches started in December, following lumbar surgery at the [facility]. She continues to suffer from severe, intractable low back pain. She reports only 2 o 3 days of relief following her surgery. In addition, she has a recent finding of sellar Mass on her brain MRI. She reports throbbing type of headaches rated 9/10 in intensity without any photophobia, visual field defect, congestions, rarely associated with nausea without any emesis. She also reports vision no any black spots from a right eye and she also complained of unsteady gait over the past month for which now she is using a walker to ambulate. She also reports memory loss. Denies visual loss. She has a history of prior removal of cataract. She endorses decreased appetite and she has no GI bleed. She denies any any focal weakness, sensory loss, incontinence of stool or urine. She was evaluated by a neurologist. Neurosurgical consultation was requested 2/. She continues to report generalized headaches. No focal weakness /. No changes. Reports persistent headaches Labs, Micro, & Vital Signs Results Date Time Temp Pulse Resp B/P (MAP) Pulse Ox O2 Delivery O2 Flow Rate FiO2 07/04/17 12:46 97.2 63 18 138/62 (87) 97 07/04/17 11:50 16 07/04/17 08:33 98.1 65 20 171/69 (103) 94 07/04/17 07:49 65 07/04/17 04:58 97.7 63 18 117/55 (75) 94 07/04/17 00:51 60 18 129/61 (83) 95 07/04/17 00:26 97.9 69 18 167/73 (104) 95 07/04/17 00:00 73 07/03/17 20:26 98.0 63 18 152/94 (113) 95 07/03/17 18:00 98.0 63 18 168/75 (106) 95 07/03/17 15:23 97.6 68 18 140/60 (86) 20 Constitutional Vital Signs Date Time Temp Pulse Resp B/P (MAP) Pulse Ox O2 Delivery O2 Flow Rate FiO2 07/04/17 12:46 97.2 63 18 138/62 (87) 97 07/04/17 11:50 16 07/04/17 08:33 98.1 65 20 171/69 (103) 94 07/04/17 07:49 65 07/04/17 04:58 97.7 63 18 117/55 (75) 94 07/04/17 00:51 60 18 129/61 (83) 95 07/04/17 00:26 97.9 69 18 167/73 (104) 95 07/04/17 00:00 73 07/03/17 20:26 98.0 63 18 152/94 (113) 95 07/03/17 18:00 98.0 63 18 168/75 (106) 95 07/03/17 15:23 97.6 68 18 140/60 (86) 20 Physical Exam MS Gomez is alert, awake and oriented to time, place and person. Speech is fluent. Cranial nerve examination demonstrates the pupils to be equal, round, and reactive to light. Extra-ocular movements are intact. Facial motor and sensory function are normal and symmetrical. Gross hearing is intact, bilaterally. The uvula is midline and elevates symmetrically with the soft palate. Sternocleidomastoid and trapezius muscles have normal and symmetrical strength. Other cranial nerves are intact. Neck is soft and supple. Cervical spine has a full range of motion in anterior flexion, extension, lateral bending, and rotation without pain. There is no tenderness to palpation to the spinous processes or paraspinal muscles. Muscle testing reveals normal bulk and tone overall without rigidity, spasticity , fasciculations, or atrophy. Muscle strength is 5/5 in all muscle groups of both upper extremities including deltoid, biceps, triceps, brachioradialis, wrist extension and waste collector. In the lower extremities, strength is 5/5 in both iliopsoas, quadriceps, hamstrings, plantar flexion, dorsiflexion, and extensor hallicus longus. Sensory examination is intact to light touch and sharp/dull discrimination in both the upper and lower extremities, symmetrically. Deep tendon reflexes are 2+ and symmetrical in the biceps, triceps, and brachioradialis, bilaterally, in the upper extremities. In the lower extremities , the patellar and Achilles are 2+, bilaterally. There is a bilateral plantar flexion response. Hoffmanns sign is negative. There is no clonus or other abnormal reflexes noted. Cerebellar examination is intact to [id number] test, rapid rhythmic alternating motion. Lungs: clear, nonlabored breathing, no wheezing Heart: S1, S2, regular rhythm and rate Skin: warm and dry, no cyanosis. Medications Current Medications Current Medications Sodium Chloride (NS Flush) 2 ml UNSCH PRN IV FLUSH FLUSH AFTER USING IV ACCESS ; Start 07/02/17 at 13:00 Sodium Chloride (NS Flush) 2 ml BID IV FLUSH Last administered on 07/04/17 09: 42; Start 07/02/17 at 21:00 Acetaminophen (Tylenol) 650 mg Q4H PRN PO TEMP > 100.4; Start 07/02/17 at 13:00 Ondansetron HCl (Zofran Inj) 4 mg Q6H PRN IVP NAUSEA OR VOMITING; Start at 13:00 Acetaminophen (Tylenol) 650 mg Q6H PRN PO PAIN SCALE 1 TO 2; Start 07/02/17 at 13:00 Naloxone HCl (Narcan Inj) 0.4 mg UNSCH PRN IV PUSH SEE LABEL COMMENTS; Start at 13:00 Atorvastatin Calcium (Lipitor) 20 mg DAILY PO Last administered on 07/04/17 09: 41; Start 07/03/17 at 09:00 Celecoxib (CeleBREX) 200 mg BID PO Last administered on 07/04/17 09:40; Start 07/02/17 at 21:00 Fluoxetine HCl (PROzac) 20 mg DAILY PO Last administered on 07/04/17 09:40; Start 07/03/17 at 09:00 Fluticasone/ Vilanterol (Breo Ellipta 100-25 Inh) 1 puff EVERY OTHER DAY INH Last administered on 07/04/17 09:41; Start 07/04/17 at 09:00 Montelukast Sodium (Singulair) 10 mg DAILY PO Last administered on 07/04/17 09: 41; Start 07/03/17 at 09:00 Pantoprazole Sodium (Protonix) 40 mg DAILY PO Last administered on 07/04/17at 09: 41; Start 07/03/17 at 09:00 Valsartan (Diovan) 160 mg BID PO Last administered on 07/04/17at 09:41; Start 07/02/17 at 21:00 Acetaminophen/ Butalbital/ Caffeine (Fioricet 325-50-40) 1 tab Q12HR PRN PO HEADACHE Last administered on 07/03/17at 05:27; Start 07/02/17 at 16:00; Stop at 10:44; Status DC Patient Own Medication PT OWN MED: DYRENIUM (TRIAMTERE... DAILY PO ; Start at 09:00; Status Future Hold Gadodiamide (Omniscan Pf Inj) 13 ml STK-MED ONCE IVCONTRAST Last administered on 07/02/17at 13:01; Start 07/02/17 at 13:01; Stop 07/02/17 at 20:11; Status DC Ketorolac Tromethamine (Toradol Inj) 30 mg ONCE ONCE IV PUSH Last administered on 07/02/17at 22:54; Start 07/02/17 at 22:15; Stop 07/02/17 at 22:16; Status DC Temazepam (Restoril) 7.5 mg ONCE ONCE PO ; Start 07/02/17 at 23:00; Stop at 23:04; Status DC Clonidine (Catapres) 0.1 mg ONCE ONCE PO Last administered on 07/03/17at 04:05; Start 07/03/17 at 04:00; Stop 07/03/17 at 04:02; Status DC Gadodiamide (Omniscan Pf Inj) 13 ml STK-MED ONCE IVCONTRAST Last administered on 07/02/17at 13:01; Start 07/02/17 at 13:01; Stop 07/03/17 at 08:47; Status DC Ketorolac Tromethamine (Toradol Inj) 30 mg ONCE ONCE IM Last administered on at 10:06; Start 07/03/17 at 09:00; Stop 07/03/17 at 09:01; Status DC Acetaminophen/ Butalbital/ Caffeine (Fioricet 325-50-40) 1 tab Q6HR PRN PO HEADACHE Last administered on 07/04/17at 10:42; Start 07/03/17 at 11:00 Divalproex Sodium (Depakote Er) 250 mg BID PO Last administered on 07/04/17at 09: 41; Start 07/03/17 at 12:30; Stop 07/04/17 at 12:17; Status DC Iohexol (Omnipaque 350 Inj) 68 ml STK-MED ONCE IVCONTRAST Last administered on 07/03/17at 12:59; Start 07/03/17 at 12:59; Stop 07/03/17 at 13:04; Status DC Divalproex Sodium (Depakote Er) 500 mg BID PO ; Start 07/04/17 at 21:00 Medical Decision Making MDM Remarks Last 48 hours Impressions Thoracic Spine MRI 07/03/17 0000 Signed Impressions: Service Date/Time: Monday, July 03, 2017 07:51 - CONCLUSION: 1. Kyphosis and degenerative changes lower lumbar spine. 2. Minimal old superior plate compression fracture T11. 3. No evidence for metastatic disease. 4. Posterior right upper lobe lung lesion and small right pleural effusion. Rick Lind MD Lumbar Spine MRI 07/03/17 0000 Signed Impressions: Service Date/Time: Monday, July 03, 2017 07:51 - CONCLUSION: 1. No evidence for metastatic disease. 2. Minimal retrolisthesis L1 on L2 and anterolisthesis L4 on L5. 3. Multilevel disc bulges. 4. Reactive facets at L4- 5. Rick Lind MD Cervical Spine MRI 07/03/17 0000 Signed Impressions: Service Date/Time: Monday, July 03, 2017 07:51 - CONCLUSION: 1. Multilevel posterior disc osteophyte complexes as described above. 2. No evidence for metastatic disease. Rick Lind MD Head/Brain Mag Res Venography 07/02/17 0000 Signed Impressions: Service Date/Time: Sunday, July 02, 2017 19:37 - CONCLUSION: No evidence of cerebral sinus thrombosis. Jose Luis Maza MD Head Magnetic Resonance Angiography 07/02/17 0000 Signed Impressions: Service Date/Time: Sunday, July 02, 2017 19:37 - CONCLUSION: Mild focal segmental stenosis involving the right middle cerebral artery proximal to the bifurcation. Otherwise unremarkable MRA of the brain. Jose Luis Maza MD Brain MRI 07/02/17 0000 Signed Impressions: Service Date/Time: Sunday, July 02, 2017 19:37 - CONCLUSION: 1. 1.3 x 1.0 cm right-sided pituitary nodule consistent with probable adenoma. 2. Mild periventricular and subcortical white matter small vessel ischemic changes bilaterally. 3. Mild bilateral pontine ischemic changes. 4. No acute hemorrhage, acute infarct, midline shift or extra-axial fluid collections. Jose Luis Maza MD Attending Statement Neuro. continue neuro checks. I again reviewed her MRI of the brain, which show shows an incidental 1 cm pituitary adenoma. I do not see any evidence of apoplexy. Visual sarmiento seem to be intact. I recommend nonoperative treatment Awaiting CONSULT rn employee health for a full putuitary workup, as most prolactinomas can be managed medically with medications Consult ophtalmology to establish her baseline visual field assessment and for follow-up In regards to her chronic low back pain, she tells me that since she thinks she has a cerebrospinal fluid leak on her lumbar region. I did review her MRIs of the cervical thoracic and lumbar spine. She has multilevel degenerative disc disease and spondylosis I will defer further care to the surgeon who recently performed her lumbar surgery, at the [facility]. These could be done as an outpatient Pulmonary.. Continue aggressive pulmonary toilette, nasotracheal suction, and breathing treatments with nebulizers. Nutrition. NPO Renal. monitor closely urine output, BUN and creatinine Endocrine. Monitor serial Acu checks and SSI as needed in detail ID monitor for signs of infection Protonix for stress ulcer prophylaxis Pranay hose and SCD's for DVT prophylaxis. Santhosh Gaviria MD Jul 04, 2017 14:44
[2017-07-04] MEDS: DIVALPROEX SODIUM E.R. 500 MG TAB PO SCH (22:57)
[2017-07-05] VITALS (8 sets, daily range): BP systolic 102–193; BP diastolic 57–79; PULSE 50–72; RESP 18; TEMP 97.1–98.4; O2SAT 94–97
[2017-07-05] MEDS ORDERED: cloNIDine HCL 0.1 MG TAB PO ONE (06:30)
[2017-07-05] MEDS: ACETAMIN 325 MG/BUTALBITAL 50 MG/CAFFEINE 40 MG TAB PO PRN (06:36)
--- NOTE | 2017-07-05 08:26 | HHI.PR ---
Review/Management Diagnosis/Plan: (1) Headache ICD Codes: R51 - Headache Status: Acute Plan: ?paraneoplastic syndrome mra/mrv negative mri brain pit adenoma esr/crp nml ct chest lesion noted- known recent dx of lung cancer recs neuro stable csf-pending depakote er 500mg bid check ct chest p.t. f/u paraneoplastic panel d/c planning if csf negative and outpatient f/u appreciate medical team (2) Pituitary adenoma ICD Codes: D35.2 - Benign neoplasm of pituitary gland Status: Acute Plan: endocrine w/u pending (3) Cognitive impairment ICD Codes: R41.89 - Other symptoms and signs involving cognitive functions and awareness Status: Chronic (4) Lumbar spondylosis ICD Codes: M47.816 - Spondylosis without myelopathy or radiculopathy, lumbar region (5) Lung cancer ICD Codes: C34.90 - Malignant neoplasm of unspecified part of unspecified bronchus or lung Status: Chronic Plan: recently dx'd Subjective Subjective Comments No acute events reported mild headache No chest pain No dyspnea Active Medications Current Medications Medications (Trade) Dose Ordered Sig/Ruben Route Start Time Stop Time Status Last Admin (NS Flush) 2 ml UNSCH PRN IV FLUSH 07/02/17 13:00 (NS Flush) 2 ml BID IV FLUSH 07/02/17 21:00 07/04/17 22:58 (Tylenol) 650 mg Q4H PRN PO 07/02/17 13:00 (Zofran Inj) 4 mg Q6H PRN IVP 07/02/17 13:00 (Tylenol) 650 mg Q6H PRN PO 07/02/17 13:00 (Narcan Inj) 0.4 mg UNSCH PRN IV PUSH 07/02/17 13:00 (Lipitor) 20 mg DAILY PO 07/03/17 09:00 07/04/17 09:41 (CeleBREX) 200 mg BID PO 07/02/17 21:00 07/04/17 22:59 (PROzac) 20 mg DAILY PO 07/03/17 09:00 07/04/17 09:40 (Breo Ellipta 100-25 Inh) 1 puff EVERY OTHER DAY INH 07/04/17 09:00 07/04/17 09:41 (Singulair) 10 mg DAILY PO 07/03/17 09:00 2/4/18 09:41 (Protonix) 40 mg DAILY PO 07/03/17 09:00 07/04/17 09:41 (Diovan) 160 mg BID PO 07/02/17 21:00 07/04/17 22:57 Patient Own Medication PT OWN MED: DYRENIUM (TRIAMTERE... DAILY PO 07/03/17 09:00 Future Hold (Fioricet 325-50-40) 1 tab Q6HR PRN PO 07/03/17 11:00 07/05/17 06:36 (Depakote Er) 500 mg BID PO 07/04/17 21:00 07/04/17 22:57 Allergies Allergies Coded Allergies bupropion (Unverified Allergy, Severe, FLU-LIKE SXS, 01/12/17) nefazodone (Unverified Allergy, Severe, FLU-LIKE SXS, 01/12/17) hydrocodone (Verified Allergy, Unknown, 07/02/17) metoclopramide (Verified Allergy, Unknown, 07/02/17) nebivolol (Verified Allergy, Unknown, 07/02/17) tramadol (Verified Allergy, Unknown, 07/02/17) aspirin (Verified Adverse Reaction, Unknown, 07/02/17) codeine (Verified Adverse Reaction, Unknown, 07/02/17) dipyridamole (Verified Adverse Reaction, Unknown, 07/02/17) Review of Systems Constitutional: Negative except HPI Eye: Negative Except HPI ENMT: Negative except HPI Respiratory: Negative except HPI Cardiovascular: Negative except HPI Gastrointestinal: Negative except HPI Gabino/Lymph: Negative except HPI Musculoskeletal: Negative except HPI Neurologic: Negative except HPI Psychiatric: Negative except HPI All other ROS: ROS reviewed as documented in chart Exam I&O / VS Vital Signs Date Time Temp Pulse Resp B/P (MAP) Pulse Ox O2 Delivery O2 Flow Rate FiO2 07/05/17 08:00 97.1 58 18 122/57 (78) 94 07/05/17 06:16 50 18 189/79 (115) 97 07/05/17 04:40 97.3 59 18 173/72 (105) 94 07/05/17 00:31 97.8 64 18 102/58 (73) 94 07/05/17 00:05 18 07/05/17 00:00 72 07/04/17 20:35 97.7 69 18 135/63 (87) 97 07/04/17 16:48 97.9 66 17 148/66 (93) 96 07/04/17 16:16 61 07/04/17 12:46 97.2 63 18 138/62 (87) 97 07/04/17 08:33 98.1 65 20 171/69 (103) 94 General: Alert and Oriented, No acute distress Eye: PERRL, EOMI Respiratory: Non-labored respirations, Symmetrical expansion Cardiology: Normal rate Neurologic: Alert, Oriented, Normal motor, No focal defects, CN II-XII intact, Normal DTR's Psychiatric: Cooperative, Appropriate mood & affect Objective Micro and Labs Laboratory Tests Test 07/04/17 16:42 Caden Rucker MD Jul 05, 2017 08:26
[2017-07-05] MEDS: DIVALPROEX SODIUM E.R. 500 MG TAB PO SCH ×2 (08:28→20:54)
[2017-07-05] MEDS: CELECOXIB 200 MG CAP PO SCH ×2 (08:28→20:54)
[2017-07-05] MEDS: FLUoxetine HCL 20 MG CAP PO SCH (08:28)
[2017-07-05] MEDS: MONTELUKAST SODIUM 10 MG TAB PO SCH (08:28)
[2017-07-05] MEDS: ATORVASTATIN 20 MG TAB PO SCH (08:29)
[2017-07-05] MEDS: PANTOPRAZOLE SOD 40 MG DELAYED RELEASE TAB PO SCH (08:29)
[2017-07-05] MEDS: VALSARTAN 160 MG TAB PO SCH ×2 (08:29→20:53)
[2017-07-05] MEDS: SODIUM CHLORIDE 0.9% FLUSH 10 ML FLUSH IV FLUSH SCH ×2 (08:40→20:54)
--- NOTE | 2017-07-05 14:15 | PD.RAD ---
Post Procedure Progress Note Pre Procedure Diagnosis: (1) Cognitive impairment Post Procedure Diagnosis: (1) Cognitive impairment Procedure Date: Jul 05, 2017 Supervising Radiologist: Geovanni Jeffries Proceduralist/Assist: RT Adore(R), RT Diana(R) Anesthesia: Local Plan of Activity Patient to Unit: Nursing Unit Patient Condition: Good See PACS Report for procedural detail/treatment Spinal Procedure Lumbar Puncture L3-L4 Fluid Removal (CCs): 8 Fluid Description: Geovanni Lua MD Jul 05, 2017 14:15
--- NOTE | 2017-07-05 14:39 | RADRPT ---
EXAM DATE/TIME: 07/05/2017 14:14 [place] COMPARISON: No previous studies available for comparison. INDICATIONS : Patient presents with chronic headaches in need of lumbar puncture. MEDICAL HISTORY : Asthma Skin cancer Left lung cancer COPD GERD Hypertension Thyroid Disease SURGICAL HISTORY : Appendectomy Gallbladder Removed Cholecystectomy Bilateral Cataract removal Tonsillectomy Lower back surgery Bladder sling ENCOUNTER: Initial ACUITY: 4 - 6 months PAIN SCORE: 9/10 LOCATION: Head to lower back LUMBAR PUNCTURE TIME: 1352 hours FLUORO TIME: 1.2 minutes IMAGE SERIES: 1 ACCESS LEVEL: L2-3 OPENING PRESSURE: 9 cm of water Not requested. FLUID: 10 cc of clear CSF was collected and sent to the laboratory for analysis. PROCEDURE : 1. Fluoroscopic guided lumbar puncture. 2. Recording of opening pressure. The risks, benefits and alternatives to the procedure were explained and verbal and written consent w as obtained. The site was prepped in sterile fashion. Full sterile technique was used, including ca p, mask, sterile gloves and gown and a large sterile sheet. Hand hygiene and 2% chlorhexidine and/or betadine/alcohol prep was utilized per protocol for cutaneous antisepsis. The skin and subcutaneous tissues were infiltrated with local anesthetic solution. With fluoroscopic guidance the lumbar thecal sac was punctured at the above level described above and the opening pressure was recorded. The above described fluid was removed without difficulty. The patient tolerated the procedure well and there were no complications. CONCLUSION: Uncomplicated fluoroscopically guided lumbar puncture with pressures as above. Geovanni Jeffries MD on July 05, 2017 at 14:36 Board Certified Radiologist. This report was verified electronically.
[2017-07-05 14:43] LABS: TOTAL PROTEIN,CSF 30.8 MG/DL (15.0-45.0)
--- NOTE | 2017-07-05 15:51 | HHI.PR ---
Subjective Remarks Patient sleeping woke up to voice, still complaining of headache she described it as 10 out of 10 she is post lumbar puncture we will continue following result with neurology and if negative she will be cleared for discharge and follow-up as an outpatient Objective Vitals Vital Signs Date Time Temp Pulse Resp B/P (MAP) Pulse Ox O2 Delivery O2 Flow Rate FiO2 07/05/17 12:00 97.6 59 18 114/60 (78) 96 07/05/17 08:00 97.1 58 18 122/57 (78) 94 07/05/17 06:16 50 18 189/79 (115) 97 07/05/17 04:40 97.3 59 18 173/72 (105) 94 07/05/17 00:31 97.8 64 18 102/58 (73) 94 07/05/17 00:05 18 07/05/17 00:00 72 07/04/17 20:35 97.7 69 18 135/63 (87) 97 07/04/17 16:48 97.9 66 17 148/66 (93) 96 07/04/17 16:16 61 I/O 07/04/17 07/04/17 07/04/17 07/05/17 07/05/17 07/05/17 07:00 15:00 23:00 07:00 15:00 23:00 Intake Total 240 ml 240 ml Balance 240 ml 240 ml Intake Oral 240 ml 240 ml # Voids 1 1 Result Diagram: 07/02/17 1015 07/02/17 1015 Objective Remarks GENERAL: This is a well-nourished, well-developed patient, in no apparent distress. SKIN: No rashes, warm and dry HEAD: Atraumatic. Normocephalic. EYES: Pupils equal round and reactive. Extraocular motions intact. No scleral icterus. ENT: Nose without bleeding, or drainage, Airway patent. NECK: Trachea midline. Supple CARDIOVASCULAR: Regular rate and rhythm without murmurs, gallops, or rubs. RESPIRATORY: Fair air entry bilaterally. No wheezes, rales, or rhonchi. GASTROINTESTINAL: Abdomen soft, non-tender, nondistended. Positive bowel sounds MUSCULOSKELETAL: Extremities without clubbing, cyanosis, or edema. Pedal pulses appreciated NEUROLOGICAL: Awake and alert [facility], cranial nerves II-12 intact, moves all extremity. Normal speech.no focal neurological deficit A/P Problem List: (1) Mass, brain ICD Code: G93.9 - Disorder of brain, unspecified (2) Headache ICD Code: R51 - Headache Status: Acute Assessment and Plan 2/4: Discussed with neurology and with patient and family,Plan: To obtain lumbar puncture and dependence on the result will take further steps /5: Continue current care, continue following CSF result with neurology possible discharge if negative A/P: Patient is 68-year-old female with primary medical condition of hypertension, hyperlipidemia, anxiety who came in to the hospital for further evaluation set by her neurologist Dr. Rucker. Sellar mass Headaches - Outside MRI of the brain found sellar mass - Consult neurology for further evaluation and recommendation. Fioricet Zofran for headache and nausea/vomiting. - Consult neurosurgery for evaluation recommendation. Recommended to consult endocrinology for full pituitary workup. Ophthalmology for visual field assessment. - Check prolactin, 24-hour urine free cortisol, IGFwant to rule out functioning pituitary adenoma - pending results - TSH, free T4 within normal, ESR within normal, C-reactive protein less than 0.29 - Vitamin B12 1019 - Fioricet, adjusted to 6 hours when necessary, Toradol given for headache and back pain post MRI - patient on celebrex - MRI showed 1. 1.3 x 1.0 cm right-sided pituitary no dual consistent with probable adenoma. 2. Mild periventricular and subcortical white matter small vessel ischemic changes bilaterally. 3. Mild bilateral pontine ischemic changes. 4. No acute hemorrhage, acute infarct, midline shift or extra axial fluid collections - Thoracic spine MRI showed 1. Kyphosis and degenerative changes lower lumbar spine. 2. Minimal old superior plate compression fracture T11. 3. No evidence of metastatic disease. 4. Posterior right upper lobe lung lesion and small right pleural effusion. - Lumbar MRI showed 1. No evidence of metastatic disease. 2. Minimal anterolisthesis L1 on L2 and anterolisthesis L4 on L5. 3. Multilevel disc bulges. 4. Reactive facets at L4 to L5. - Cervical MRI showed 1. Multilevel posterior disc osteophyte complexes as described above. 2. No evidence of metastatic disease. - May order CXR to eval RUL lung lesion possible bx. - Will await neurology recommendations Other chronic medical conditions including hypertension, hyperlipidemia, anxiety Resume outpatient medications valsartan 160 mg by mouth twice a day DVT prophylaxis: Bilateral SCDs Discharge Planning Once cleared by neurologist González Childs MD Jul 05, 2017 15:50
[2017-07-05 16:18] LABS: SUPERNATE COLOR TUBE #1 CLEAR (CLEAR)
[2017-07-05 16:19] LABS: CSF NEUTROPHILS 0 %; RBC TUBE #4 12 /MM3; WBC TUBE #4 2 /MM3 (0-10)
[2017-07-06] VITALS: BP 150/66; PULSE 59; RESP 18; TEMP 98.1; O2SAT 96
[2017-07-06 04:00] VITALS: BP 154/69; PULSE 58; RESP 18; TEMP 98.1; O2SAT 92
--- NOTE | 2017-07-06 07:50 | HHI.PR ---
Review/Management Diagnosis/Plan: (1) Headache ICD Codes: R51 - Headache Status: Acute Plan: ?paraneoplastic syndrome mra/mrv negative mri brain pit adenoma esr/crp nml ct chest lesion noted- known recent dx of lung cancer csf- nml. wbc 2. protein 30 recs trial of topamax- s/b d/w pt. no hx of renal stones/glaucoma p.t. f/u paraneoplastic panel d/c planning today rehab/snf vs home with p.t. and outpatient f/u with me in 2 weeks appreciate medical team (2) Pituitary adenoma ICD Codes: D35.2 - Benign neoplasm of pituitary gland Status: Acute Plan: endocrine w/u pending (3) Cognitive impairment ICD Codes: R41.89 - Other symptoms and signs involving cognitive functions and awareness Status: Chronic (4) Lumbar spondylosis ICD Codes: M47.816 - Spondylosis without myelopathy or radiculopathy, lumbar region (5) Lung cancer ICD Codes: C34.90 - Malignant neoplasm of unspecified part of unspecified bronchus or lung Status: Chronic Plan: recently dx'd Subjective Subjective Comments No acute events reported + headache No chest pain No dyspnea Active Medications Current Medications Medications (Trade) Dose Ordered Sig/Ruben Route Start Time Stop Time Status Last Admin (NS Flush) 2 ml UNSCH PRN IV FLUSH 07/02/17 13:00 (NS Flush) 2 ml BID IV FLUSH 07/02/17 21:00 07/05/17 20:54 (Tylenol) 650 mg Q4H PRN PO 07/02/17 13:00 (Zofran Inj) 4 mg Q6H PRN IVP 07/02/17 13:00 (Tylenol) 650 mg Q6H PRN PO 07/02/17 13:00 (Narcan Inj) 0.4 mg UNSCH PRN IV PUSH 07/02/17 13:00 (Lipitor) 20 mg DAILY PO 07/03/17 09:00 07/05/17 08:29 (CeleBREX) 200 mg BID PO 07/02/17 21:00 07/05/17 20:54 (PROzac) 20 mg DAILY PO 07/03/17 09:00 07/05/17 08:28 (Breo Ellipta 100-25 Inh) 1 puff EVERY OTHER DAY INH 07/04/17 09:00 07/04/17 09:41 (Singulair) 10 mg DAILY PO 07/03/17 09:00 07/05/17 08:28 (Protonix) 40 mg DAILY PO 07/03/17 09:00 07/05/17 08:29 (Diovan) 160 mg BID PO 07/02/17 21:00 07/05/17 20:53 Patient Own Medication PT OWN MED: DYRENIUM (TRIAMTERE... DAILY PO 07/03/17 09:00 Future Hold (Fioricet 325-50-40) 1 tab Q6HR PRN PO 07/03/17 11:00 07/05/17 06:36 (Depakote Er) 500 mg BID PO 07/04/17 21:00 07/05/17 20:54 Allergies Allergies Coded Allergies bupropion (Unverified Allergy, Severe, FLU-LIKE SXS, 01/12/17) nefazodone (Unverified Allergy, Severe, FLU-LIKE SXS, 01/12/17) hydrocodone (Verified Allergy, Unknown, 07/02/17) metoclopramide (Verified Allergy, Unknown, 07/02/17) nebivolol (Verified Allergy, Unknown, 07/02/17) tramadol (Verified Allergy, Unknown, 07/02/17) aspirin (Verified Adverse Reaction, Unknown, 07/02/17) codeine (Verified Adverse Reaction, Unknown, 07/02/17) dipyridamole (Verified Adverse Reaction, Unknown, 07/02/17) Review of Systems Constitutional: Negative except HPI Eye: Negative Except HPI ENMT: Negative except HPI Respiratory: Negative except HPI Cardiovascular: Negative except HPI Gastrointestinal: Negative except HPI Gabino/Lymph: Negative except HPI Musculoskeletal: Negative except HPI Neurologic: Negative except HPI Psychiatric: Negative except HPI All other ROS: ROS reviewed as documented in chart Exam I&O / VS 07/06/17 07/06/17 07/07/17 15:00 23:00 07:00 # Voids 1 Vital Signs Date Time Temp Pulse Resp B/P (MAP) Pulse Ox O2 Delivery O2 Flow Rate FiO2 07/06/17 04:00 98.1 58 18 154/69 (97) 92 07/06/17 00:00 98.1 59 18 150/66 (94) 96 07/05/17 20:00 98.4 70 18 193/74 (113) 95 07/05/17 16:00 97.7 65 18 127/64 (85) 95 07/05/17 12:00 97.6 59 18 114/60 (78) 96 07/05/17 12:00 62 07/05/17 08:00 97.1 58 18 122/57 (78) 94 07/05/17 08:00 61 07/05/17 07:50 18 General: Alert and Oriented, No acute distress Eye: PERRL, EOMI Respiratory: Non-labored respirations, Symmetrical expansion Cardiology: Normal rate Neurologic: Alert, Oriented, Normal motor, No focal defects, CN II-XII intact, Normal DTR's Psychiatric: Cooperative, Appropriate mood & affect Objective Micro and Labs Laboratory Tests Test 07/05/17 13:52 CSF Volume (Tube 1) 3.0 CSF Supernatant Color (tube 1) CLEAR CSF Gross Blood (Tube 1) 0 CSF Volume (Tube 2) 2.5 CSF Supernatant Color (tube 2) CLEAR CSF Gross Blood (Tube 2) 0 CSF Volume (Tube 3) 2.2 CSF Supernatant Color (tube 3) CLEAR CSF Gross Blood (Tube 3) 0 CSF Volume (Tube 4) 2.0 CSF Supernatant Color (tube 4) CLEAR CSF Gross Blood (Tube 4) 0 CSF WBC (Tube 4) 2 CSF RBC (Tube 4) 12 CSF Neutrophils 0 CSF Lymphocytes 2 CSF Monocytes 1 CSF Glucose 47 CSF Total Protein 30.8 Date/Time Source Procedure Growth Status 07/05/17 13:52 Cerebral Spinal Fluid Lumbar Puncture Gram Stain - Final Resulted 07/05/17 13:52 Cerebral Spinal Fluid Lumbar Puncture CSF Culture Pending Resulted Caden Rucker MD Jul 06, 2017 07:50
[2017-07-06 08:00] VITALS: BP 142/65; PULSE 64; RESP 18; TEMP 98; O2SAT 94
[2017-07-06] MEDS ORDERED: TOPIRAMATE 25 MG TAB PO SCH (08:00)
[2017-07-06] MEDS: PANTOPRAZOLE SOD 40 MG DELAYED RELEASE TAB PO SCH (08:35)
[2017-07-06] MEDS: VALSARTAN 160 MG TAB PO SCH (08:35)
[2017-07-06] MEDS: ATORVASTATIN 20 MG TAB PO SCH (08:35)
[2017-07-06] MEDS: MONTELUKAST SODIUM 10 MG TAB PO SCH (08:36)
[2017-07-06] MEDS: CELECOXIB 200 MG CAP PO SCH (08:37)
[2017-07-06] MEDS: FLUoxetine HCL 20 MG CAP PO SCH (08:43)
[2017-07-06] MEDS: SODIUM CHLORIDE 0.9% FLUSH 10 ML FLUSH IV FLUSH SCH (08:44)
[2017-07-06 08:47] VITALS: PULSE 64
[2017-07-06 08:47] LABS: CSF LYMPHOCYTES 67 %; CSF MONOCYTES 33 %
[2017-07-06] MEDS: FLUTICASONE 100 MCG/VILANTEROL 25 MCG INHALER INH SCH (09:00)
[2017-07-06 12:00] VITALS: BP 156/71; PULSE 58; RESP 18; TEMP 97.9; O2SAT 97
[2017-07-06] MEDS ORDERED: TOPI25 PO (12:07)
--- NOTE | 2017-07-06 12:08 | HHI.FF ---
Face to Face Verification Diagnosis: (1) Headache (2) Cognitive impairment (3) Lumbar spondylosis (4) Lung cancer (5) Mass, brain (6) Pituitary adenoma Physical Therapy Order: Evaluate and Treat Occupational Therapy Order: Evaluate and Treat Home Health Nursing Order: Medical education Nursing assessment with vital signs I have seen patient Raghavendra Gomez on 07/06/17. My clinical findings support the need for the requested home health care services because: Deconditioned w/ increased weakness Limited ability to care for self I certify that my clinical findings support that this patient is homebound because: Unsteady gait/balance González Childs MD Jul 06, 2017 12:08
[2017-07-07 09:31] LABS: HSV 1,PCR Negative (Negative)
[2017-07-07 17:52] LABS: HU (NEURONAL NUCLEAR) AB NEGATIVE (NEGATIVE); HU (NEURONAL NUCLEAR) AB TITER ND titer (<1:40); NEURONAL NUCLEAR(Ri) AB SCREEN NEGATIVE (NEGATIVE); PURKINJE CELL (YO) AB NEGATIVE (NEGATIVE); PURKINJE CELL(YO)IGG AB TITER ND titer (<1:40); YO WESTBLOT ND (NEGATIVE)
[2017-07-08 01:28] LABS: ENTEROVIRUS PCR RESULT Negative (Negative); ENTEROVIRUS PCR SPEC SOURCE CSF
[2017-07-08 14:15] LABS: CSF CRYPTOCOCCUS AG CONF ND (NOT DETECTD)
[2017-07-08 19:52] LABS: VDRL CSF NON-REACTIVE (NON-REACTVE)
[2017-07-09 19:54] LABS: CSF CRYPTOCOCCUS ANTIGEN NOT DETECTED (NEGATIVE)
== END 2017-07-06 15:02 | disposition home health service (06) | DRG 644 ==
LOC: NEPC 09:40 → NEDA 13:00 → NEPHCDU 15:48 → OBSVTOIN 07-03 12:08 → N05B 07-03 16:05
PROVIDERS: ADMIT Hospitalist; ATTEND Hospitalist
PROC: 009U3ZX Drainage of Spinal Canal, Percutaneous Approach, Diagnostic (ICD-10-PCS; principal; 2017-07-05)
PROC: B01B1ZZ Fluoroscopy of Spinal Cord using Low Osmolar Contrast (ICD-10-PCS; 2017-07-05)
DX: D35.2 Benign neoplasm of pituitary gland (principal); M48.54XA Collapsed vertebra, not elsewhere classified, thoracic region, initial encounter for fracture; J44.9 Chronic obstructive pulmonary disease, unspecified; C34.90 Malignant neoplasm of unspecified part of unspecified bronchus or lung; R63.0 Anorexia; R51 Headache; E78.5 Hyperlipidemia, unspecified; I10 Essential (primary) hypertension; R26.81 Unsteadiness on feet; R41.3 Other amnesia; K21.9 Gastro-esophageal reflux disease without esophagitis; N39.3 Stress incontinence (female) (male); H53.421 Scotoma of blind spot area, right eye; M47.816 Spondylosis without myelopathy or radiculopathy, lumbar region; M40.209 Unspecified kyphosis, site unspecified; E07.9 Disorder of thyroid, unspecified; M25.78 Osteophyte, vertebrae; M50.321 Other cervical disc degeneration at C4-C5 level; M19.90 Unspecified osteoarthritis, unspecified site; F41.9 Anxiety disorder, unspecified; Z85.828 Personal history of other malignant neoplasm of skin; Z87.891 Personal history of nicotine dependence; Z88.5 Allergy status to narcotic agent; Z88.6 Allergy status to analgesic agent
CPT/HCPCS: 62270; 70544; 70553; 71260; 72156; 72157; 72158; 74177; 77003; 80053; 82164; 82607; 82945; 83690; 83873; 84146; 84157; 84305; 84439; 84443; 85025; 85610; 85652; 85730; 86140; 86255; 86403; 86592; 87070; 87205; 87498; 87529; 88108; 89051; 93005; 96374; 96376; A9579; G0378; G8987-GP; G8988-GP; J1885; Q9967

== ENCOUNTER 2017-07-14 18:35 | Emergency (ER) | payer MEDICARE, OTHER ==
[~2017-07-14] VITALS: Ht 160 cm; Wt 63.6 kg
[~2017-07-14 18:35] MED LIST changes: -ACIP20TA19 PO; -ACTO35TA PO; -AMLO5TAB96 PO; -ATOR20TA42 PO; +BUTA1CAP PO; +CELE1CAP8 PO; -CHLORTABS PO; +CHOL1CHW5 PO; +DIOV160T6 PO; -DIOV40TA PO; +FLUT1INH INH; +GLUC500C36 PO; -GLUC500C56 PO; +LEG CRAMPS PO; +LIPI20TA PO; -MOTR200T PO; +MULT1TAB39 PO; +OCUVTAB4 PO; -TAB-TAB PO; +TOPI25 PO; +TRIA1CAP6 PO; +VITA10002 PO; -VITA400C28 PO; +WHEE1EAC; -otc PO
[2017-07-14 18:37] VITALS: BP 169/72; PULSE 85; RESP 14; TEMP 97.9; O2SAT 95
--- NOTE | 2017-07-14 18:57 | PD ---
HPI Chief Complaint: Headache Time Seen by Provider: 18:46 Travel History International Travel<30 days: No Contact w/Intl Traveler<30days: No Traveled to known affect area: No History of Present Illness HPI 77-year-old female presents to the emergency department with her family stating that Dr. Galo, her primary care provider told her she needed to come immediately to the emergency department. They alleged they were told she may have a viral illness and this needs to be addressed. They mentioned biliary blockage. They're concerned about their mother's deterioration. The patient states that she is forgetting things more frequently as of late. Patient states that she was sitting up eating dinner when they got the call from her other son that they needed to come to the emergency department. She has no current complaints. She states that she has been forgetting things lately and confusing things, but has no acute changes. After discussing with the family, one son is very concerned and states that she has been worse than what she is right now while the other son states that her memory comes and goes. They verbalize frustration about not having a definitive diagnosis or reason why this is happening. Patient was hospitalized at the beginning of this month for evaluation and had multiple imaging studies and lab work done. I spoke with Dr. Blackwood who states the rectum mean that the patient come emergency department after speaking with the patient's primary care provider who states that she is deteriorating quickly. I spoke with the primary care provider who states she was told by the family that the patient is wheelchair bound and not eating. The patient is ambulatory here and states that she was eating dinner when she was given the call to come here. Again the patient has no acute concerns at this time. PFSH Past Medical History Arthritis: Yes Asthma: No Depression: Yes Cancer: Yes (skin cancers, lung ca left lung) Cardiovascular Problems: Yes COPD: Yes Cerebrovascular Accident: No Diabetes: No GERD: Yes Glaucoma: No Genitourinary: No Hepatitis: No Hiatal Hernia: No Hypertension: Yes Immune Disorder: No Musculoskeletal: Yes (arthritis) Neurologic: No Psychiatric: Yes Reproductive: No Respiratory: Yes (copd,emphysema) Migraines: No Seizures: No Thyroid Disease: Yes (thyroid removal) Dilation and Curettage (D&C): Yes Past Surgical History Abdominal Surgery: Yes (appendectomy gallbladder removed) Appendectomy: Yes Cholecystectomy: Yes Ear Surgery: No Eye Surgery: Yes (cataract removal both eyes) Genitourinary Surgery: Yes (bladder sling) Gynecologic Surgery: Yes (d and c) Oral Surgery: Yes (tonsillectomy) Pacemaker: No Tonsillectomy: Yes Other Surgery: Yes (lower back surgery) Social History Alcohol Use: Yes (occasionally) Tobacco Use: No (QUIT LONG AGO) Substance Use: No Allergies-Medications (Allergen,Severity, Reaction): Coded Allergies: bupropion (Unverified Allergy, Severe, FLU-LIKE SXS, 01/12/17) nefazodone (Unverified Allergy, Severe, FLU-LIKE SXS, 01/12/17) hydrocodone (Verified Allergy, Unknown, 07/02/17) metoclopramide (Verified Allergy, Unknown, 07/02/17) nebivolol (Verified Allergy, Unknown, 07/02/17) tramadol (Verified Allergy, Unknown, 07/02/17) aspirin (Verified Adverse Reaction, Unknown, 07/02/17) codeine (Verified Adverse Reaction, Unknown, 07/02/17) dipyridamole (Verified Adverse Reaction, Unknown, 07/02/17) Reported Meds & Prescriptions Reported Meds & Active Scripts Active Topamax (Topiramate) 25 Mg Tab 25 Mg PO Q12H Reported Celecoxib 200 Mg Cap 200 Mg PO BID Breo Ellipta Inh (Fluticasone/Vilanterol) 100-25 Mcg/Act Inh 1 Puff INH EVERY OTHER DAY Use daily at the same time. Vitamin D3 (Cholecalciferol (Vitamin D3)) 2,000 Unit Tab.chew 2,000 Units PO DAILY Dyrenium (Triamterene) 50 Mg Cap 50 Mg PO DAILY Lipitor (Atorvastatin Calcium) 20 Mg Tab 20 Mg PO DAILY Preservision Areds (Multiple Vitamins W/ Minerals) 1 Tab 2 Tab PO DAILY Vitamin B-12 (Cyanocobalamin) 1,000 Mcg Tab 1,000 Mcg PO DAILY Multiple Vitamin/Minerals (Multiple Vitamins W/ Minerals) 1 Tab Tab 1 Tab PO DAILY Diovan (Valsartan) 160 Mg Tab 160 Mg PO BID Review of Systems Except as stated in HPI: all other systems reviewed are Neg Physical Exam Narrative GENERAL: All nourished elderly female patient, ambulatory and in no acute distress. SKIN: Focused skin assessment warm/dry. HEAD: Atraumatic. Normocephalic. EYES: Pupils equal and round. No scleral icterus. No injection or drainage. ENT: No nasal bleeding or discharge. Mucous membranes pink and moist. NECK: Trachea midline. No JVD. CARDIOVASCULAR: Regular rate and rhythm. RESPIRATORY: No accessory muscle use. Clear to auscultation. Breath sounds equal bilaterally. GASTROINTESTINAL: Abdomen soft, nondistended. Mild epigastric tenderness to palpation. No guarding. No rebound tenderness. MUSCULOSKELETAL: No obvious deformities. No clubbing. No cyanosis. No edema. NEUROLOGICAL: Awake and alert. No obvious cranial nerve deficits. Motor grossly within normal limits. Normal speech. PSYCHIATRIC: Appropriate mood and affect; Data Data Last Documented VS Vital Signs Date Time Temp Pulse Resp B/P (MAP) Pulse Ox O2 Delivery O2 Flow Rate FiO2 07/14/17 21:33 07/14/17 19:08 70 18 97 Room Air 07/14/17 18:37 97.9 Orders Orders Iv Access Insert/Monitor (07/14/17 19:09) Complete Blood Count With Diff (07/14/17 19:09) Comprehensive Metabolic Panel (07/14/17 19:09) Lipase (07/14/17 19:09) Ed Discharge Order (07/14/17 21:08) Labs Laboratory Tests Test 07/14/17 19:27 White Blood Count 10.4 TH/MM3 Red Blood Count 3.76 MIL/MM3 Hemoglobin 11.3 GM/DL Hematocrit 33.5 % Mean Corpuscular Volume 89.3 FL Mean Corpuscular Hemoglobin 30.0 PG Mean Corpuscular Hemoglobin Concent 33.6 % Red Cell Distribution Width 12.7 % Platelet Count 320 TH/MM3 Mean Platelet Volume 7.8 FL Neutrophils (%) (Auto) 60.9 % Lymphocytes (%) (Auto) 20.5 % Monocytes (%) (Auto) 14.9 % Eosinophils (%) (Auto) 3.0 % Basophils (%) (Auto) 0.7 % Neutrophils # (Auto) 6.3 TH/MM3 Lymphocytes # (Auto) 2.1 TH/MM3 Monocytes # (Auto) 1.5 TH/MM3 Eosinophils # (Auto) 0.3 TH/MM3 Basophils # (Auto) 0.1 TH/MM3 CBC Comment DIFF FINAL Differential Comment Blood Urea Nitrogen 21 MG/DL Creatinine 0.90 MG/DL Random Glucose 99 MG/DL Total Protein 6.0 GM/DL Albumin 3.0 GM/DL Calcium Level 9.6 MG/DL Alkaline Phosphatase 107 U/L Aspartate Amino Transf (AST/SGOT) 15 U/L Alanine Aminotransferase (ALT/SGPT) 14 U/L Total Bilirubin 0.4 MG/DL Sodium Level 134 MEQ/L Potassium Level 3.7 MEQ/L Chloride Level 98 MEQ/L Carbon Dioxide Level 29.2 MEQ/L Anion Gap 7 MEQ/L Estimat Glomerular Filtration Rate 60 ML/MIN Lipase 152 U/L MDM Medical Decision Making Medical Screen Exam Complete: Yes Emergency Medical Condition: Yes Medical Record Reviewed: Yes Differential Diagnosis Normal examination versus electrolyte abnormality versus dementia versus UTI Narrative Course 77-year-old female presents emergency department for evaluation. Patient appears without distress. She is able to participate in normal conversation with me in follow all instructions. She is ambulatory. She has no acute needs at this time. I discussed with both her neurologist Dr. lBackwood and her primary care provider Dr. Galo the patient findings. I have explained to him that there is nothing acute found on exam or within her lab work. It does sound that the family is not fully understanding what is going on and there are multiple modes of communication possibly causing some confusion among them. The patient's family is frustrated and saddened by their mother's forgetfulness. However I explained to them here in the emergency department with this not being an acute change, there is no need for further workup. I have ordered a urinalysis however the patient's family states that she has had this done and this is not a cause of her confusion. They would like to go home. Patient will be discharged at this time. Diagnosis Primary Impression: Cognitive impairment Referrals: Caden Rucker MD Primary Care Physician Patient Instructions: Dementia (ED), General Instructions Additional Instructions: Follow-up with a primary care provider Return immediately with any acute worsening of symptoms Med/Other Pt SpecificInfo: No Change to Meds Disposition: 01 DISCHARGE HOME Condition: Stable Edith Jenkins Jul 14, 2017 18:56
[2017-07-14 19:08] VITALS: BP 127/56; PULSE 70; RESP 18; O2SAT 97
[2017-07-14 20:06] LABS: AUTOMATED NEUTROPHIL # 6.3 TH/MM3 (1.8-7.7); BASOPHIL # 0.1 TH/MM3 (0-0.2); BASOPHIL % 0.7 % (0.0-2.0); EOSINOPHIL # 0.3 TH/MM3 (0-0.4); HEMATOCRIT 33.5 % (35.0-46.0); HEMOGLOBIN 11.3 GM/DL (11.6-15.3); LYMPH % 20.5 % (9.0-44.0); LYMPHOCYTE # 2.1 TH/MM3 (1.0-4.8); MEAN CELL VOLUME 89.3 FL (80.0-100.0); MEAN CORPUSCULAR HGB CONC 33.6 % (32.0-36.0); MEAN PLATELET VOLUME 7.8 FL (7.0-11.0); MONO % 14.9 % (0.0-8.0); MONOCYTE # 1.5 TH/MM3 (0-0.9); NEUT % 60.9 % (16.0-70.0); PLATELET COUNT 320 TH/MM3 (150-450); RED BLOOD COUNT 3.76 MIL/MM3 (4.00-5.30); RED CELL DISTRIBUTION WIDTH 12.7 % (11.6-17.2); WHITE BLOOD COUNT 10.4 TH/MM3 (4.0-11.0)
[2017-07-14 20:15] LABS: AST (GOT) 15 U/L (15-37); BICARBONATE 29.2 MEQ/L (21.0-32.0); BLOOD UREA NITROGEN 21 MG/DL (7-18); CALCIUM 9.6 MG/DL (8.5-10.1); CHLORIDE 98 MEQ/L (98-107); GLOMERULAR FILTRATION RATE 60 ML/MIN (>89); GLUCOSE,RANDOM 99 MG/DL (74-106); SODIUM (NA) 134 MEQ/L (136-145)
[2017-07-14 20:17] LABS: ALT (GPT) 14 U/L (10-53)
[2017-07-14 20:19] LABS: ALKALINE PHOSPHATASE 107 U/L (45-117); TOTAL BILIRUBIN ADULT 0.4 MG/DL (0.2-1.0)
== END 2017-07-14 21:38 | disposition home or self-care (01) ==
LOC: NEPE 18:35
DX: R41.89 Other symptoms and signs involving cognitive functions and awareness (principal); M19.90 Unspecified osteoarthritis, unspecified site; F32.9 Major depressive disorder, single episode, unspecified; J44.9 Chronic obstructive pulmonary disease, unspecified; K21.9 Gastro-esophageal reflux disease without esophagitis; I10 Essential (primary) hypertension; Z79.899 Other long term (current) drug therapy; Z88.6 Allergy status to analgesic agent; Z88.5 Allergy status to narcotic agent
CPT/HCPCS: 80053; 83690; 85025; 99283